=== PATIENT | female | born 1965 | race African-American/Black ===

== ENCOUNTER 2017-11-20 00:58 | Inpatient (IN) | payer MEDICARE, MEDICAID ==
--- NOTE | 2017-11-20 08:44 | CT ---
PRELIMINARY REPORT/[facility]/EMERGENCY AFTER HOURS PROCEDURE: EXAM: CT Chest Without Intravenous Contrast CLINICAL HISTORY: 52 years old, female; Pain; Chest pain; Type not specified TECHNIQUE: Axial computed tomography images of the chest without intravenous contrast. Coronal reformatted images were created and reviewed. COMPARISON: No relevant prior studies available. FINDINGS: Lungs: Airspace disease with air bronchograms centrally in the right lung around the hilar structures extending into the upper lobe with some bronchial crowding anteriorly. Central bronchi are unremarka ble. Patchy airspace disease posteriorly in the left upper lobe and superior segment of the left lowe r lobe. Scattered patchy consolidative and nodular densities in both lungs, somewhat more rounded and defined on the left. Pleural space: Small bilateral pleural effusions, greater on the right with possible mild pleural thi ckening dependently. Heart: Unremarkable. No significant pericardial effusion. Bones/joints: Mottled density within the sternum. Small lytic lesion within the inferior right scapul a. Soft tissues: Right mastectomy. Scattered radiodensities and mild thickening along the right chest wa ll. Apparent skin thickening along the left breast. Vasculature: Unremarkable. Lymph nodes: Several subcentimeter to borderline enlarged mediastinal lymph nodes, measuring up to ar ound 1 cm along the superolateral AP window Upper abdomen: Gallbladder stones and/or sludge. IMPRESSION: Small bilateral pleural effusions with mild apparent pleural thickening. Airspace disease bilaterally suggestive of pneumonia. Scattered consolidative and nodular densities may be related. Underlying ma lignancy is not excluded. Thank you for allowing us to participate in the care of your patient. Dictated and Authenticated by: Surya Patterson MD 11/20/2017 3:55 AM Central Time ([place] & [place]) FINAL REPORT CHEST CT NONCONTRAST: Date: 11/20/17 COMPARISON: Reference made to radiograph of chest from previous day. FINDINGS/IMPRESSION: I agree with the above provided preliminary interpretation from [facility]. There is extensive bilateral pulmonary parenchymal consolidation. The possibility of underlying malig floyd cannot be excluded, and therefore upon resolution of symptoms and completion of treatment regim en, follow-up CT scan is recommended to confirm resolution of imaging findings. POS: [facility]
[2017-11-20] MEDS ORDERED: Sodium Chloride 0.9% 1,000 ML IV SCH (11:25)
[2017-11-20] MEDS ORDERED: Oseltamivir 6 MG/ML ORAL SUSP PO SCH (11:30)
[2017-11-20] MEDS ORDERED: Vancomycin HCl 1 GM in Premix Bag 1 BAG IVPB SCH (11:30)
[2017-11-20] MEDS ORDERED: LEVOFLOXACIN IVPB SCH (11:30)
--- NOTE | 2017-11-20 11:30 | NM ---
RADIONUCLIDE VENTILATION PERFUSION LUNG SCAN: Date: 11/20/17 HISTORY: Lung mass. Chest pain. Dyspnea. COMPARISON: CT chest from earlier on the same date. FINDINGS: Ventilation images show very heterogeneous uptake with defects centrally correlating with the atelect asis and lung masses. Scattered areas of air trapping are more pronounced on the right than the left. Perfusion images show extensive bilateral perfusion defects correlating with the consolidation, amari s, and pleural fluid on the CT chest exam. IMPRESSION: Widespread bilateral triple matched defects. Exam is indeterminate due to the extensive consolidation and lung masses. CT arteriogram chest could be best used, if not contraindicated, to evaluate for pulmonary embolus. POS: [facility]
[2017-11-20] MEDS ORDERED: Benzonatate 100 MG CAP PO PRN (16:28)
[2017-11-20] MEDS ORDERED: Dextrose 50% Abboject 50 ML SYRINGE SLOW IVP PRN (16:28)
[2017-11-20] MEDS ORDERED: Ondansetron HCl/PF 4 MG/2 ML Vial IVP PRN (16:28)
[2017-11-20] MEDS ORDERED: traMADol HCl 50 MG TAB PO PRN (16:28)
[2017-11-20] MEDS ORDERED: Acetaminophen 500 MG TAB PO PRN (16:28)
[2017-11-20] MEDS ORDERED: Ondansetron ODT 4 MG TAB PO PRN (16:28)
[2017-11-20] MEDS ORDERED: HumaLOG 300 UNITS/3 ML VIAL SC PRN ×2 (16:28)
[2017-11-20] MEDS ORDERED: Dextrose 5% in Water 1,000 ML IV PRN (16:28)
[2017-11-20] MEDS: Cefepime 2 GM in Sodium Chloride 0.9% 100 ML IVPB SCH (18:03)
[2017-11-20] MEDS: Cefepime 2 GM, Syringe 2.5 ML in Sterile Water 10 ML SLOW IVP SCH (18:06)
[2017-11-20] MEDS: Sodium Chloride 0.9% 1,000 ML IV SCH ×2 (18:06→23:57)
[2017-11-20] MEDS: Pregabalin 50 MG CAP PO SCH (20:56)
[2017-11-20] MEDS: Famotidine 20 MG TAB PO SCH (20:57)
[2017-11-20] MEDS: Zolpidem Tartrate 5 MG TAB PO PRN (20:58)
[2017-11-20] MEDS: Insulin Detemir 100 UNITS/ML 100 UNITS in Pre-Filled Syringe 1 EACH SC SCH (20:59)
[2017-11-20] MEDS ORDERED: INSULIN GLARGINE HUM REC ANLOG 100 UNIT SQ SCH (21:00)
--- NOTE | 2017-11-20 22:53 | HP ---
DATE OF ADMISSION: 11/20/2017 PRIMARY CARE PROVIDER: Dr. Pamela Romero. CHIEF COMPLAINT: Hypotension. HISTORY OF PRESENT ILLNESS: This is a 52-year-old -[place] Islander female who presented to [facility] in transfer from [facility] after apparently her [place] care provider sent her to the emergency room for evaluation of hypotension. The patient states s he has noticed hypotension over the last 3-4 weeks and has been titrating her medication regimen at [facility]. The patient denied any specific nausea, vomiting or diarrhea. The patient denied any recent tr auma, chest pain, left arm weakness, or unilateral symptoms. The patient does admit to a significant history of right-sided breast cancer diagnosed in the early 1999s, recurring in 2014 after undergoin g a mastectomy with radiation and chemotherapy treatments in the early 1999s. The patient states she is currently receiving an intramuscular chemotherapy injections every 28 days through Oncology offic e in [place], [place]. The patient denied any other specific change to her chronic medication regimen. T he patient does admit to associated dizziness, but no specific syncope or falls. The patient has not ed some palpitations and states her heart rate is always fast. In the emergency room, the patient un derwent extensive evaluation including plain chest radiographs and CT of the chest showing questionab le right hilar mass with associated atelectasis or infiltrate. CT imaging of the chest showed small bilateral pleural effusions with airspace disease suggestive of pneumonia. Consolidative and nodular densities were noted bilaterally. An underlying malignancy could not be excluded per radiology repo rt. The patient also underwent ventilation perfusion study of the lungs showing heterogeneous and wi despread bilateral matched defects. The study was indeterminate given questionable extensive consoli dation versus lung masses. The patient received Rocephin x2 grams in addition to intravenous normal saline and Tamiflu x1 dose. The patient was transferred to the intermediate care unit for further ev aluation. PAST MEDICAL HISTORY: 1. Breast carcinoma, status post right mastectomy with chemo and radiation therapy. 2. History of breast cancer recurrence with current chemotherapy. 3. Tobacco abuse. 4. History of right upper extremity venous thrombosis. 5. Hyperlipidemia. 6. History of gout. 7. Hypertension. PAST SURGICAL HISTORY: Status post right mastectomy, status post bilateral tubal ligation. CURRENT MEDICATIONS: 1. Allopurinol 100 mg 1 tab p.o. daily. 2. Lipitor 80 mg 1 tab p.o. daily. 3. Bupropion SR 150 mg 1 tab p.o. daily. 4. Plavix 75 mg 1 tab p.o. daily. 5. Amaryl 4 mg 1 tab p.o. q.a.m. 6. Glargine insulin 100 units subcutaneously b.i.d. 7. Lisinopril/hydrochlorothiazide 20/25 mg 1 tab p.o. daily. 8. Metformin 1000 mg p.o. b.i.d. 9. Lyrica 50 mg 1 tab p.o. b.i.d. 10. Tramadol 50 mg p.o. t.i.d. p.r.n. 11. Ambien 10 mg 1 tab p.o. at bedtime p.r.n. ALLERGIES: 1. MORPHINE SULFATE. 2. NITROGLYCERIN. 3. PENICILLIN. FAMILY HISTORY: No inheritable diseases per patient report. SOCIAL HISTORY: The patient resides in [place], [place]. She smokes up to a pack of cigarettes daily. Occasional alcohol use. No illicit drug use. Disabled. REVIEW OF SYSTEMS: The following complete review of systems was negative, unless otherwise mentioned in the HPI or below: Constitutional: Weight loss or gain, ability to conduct usual activities. Skin: Rash, itching. Eyes: Double vision, pain. ENT/Mouth: Nose bleeding, neck stiffness, pain, tenderness. Cardiovascular: Palpitations, dyspnea on exertion, orthopnea. Respiratory: Shortness of breath, wheezing, cough, hemoptysis, fever or night sweats. Gastrointestinal: Poor appetite, abdominal pain, heartburn, nausea, vomiting, constipation, or diarr hea. Genitourinary: Urgency, frequency, dysuria, nocturia. Musculoskeletal: Pain, swelling. Neurologic/Psychiatric: Anxiety, depression. Allergy/Immunologic: Skin rash, bleeding tendency. Otherwise negative except as stated per HPI. PHYSICAL EXAMINATION: VITAL SIGNS: Currently, blood pressure 140/71, pulse 121, respiratory rate 20, temperature 96.5 degr ees Fahrenheit, O2 saturation 98% on room air. GENERAL APPEARANCE: This is a 52-year-old -[place]er female, alert and oriented x3, pleasant, in no acute distress. HEENT: Pupils are equal, round, and reactive to light and accommodation. Extraocular muscles are in tact. No scleral icterus, no conjunctival injection. Nares patent. OP is clear. Teeth in fair rep air. NECK: Supple, no cervical adenopathy, no thyromegaly, no carotid bruits, no JVD appreciated. Cervic al spine with full active and passive range of motion. No meningeal signs appreciated. CHEST: Diminished breath sounds in the bases bilaterally with expiratory wheezes bilaterally. Occas ional coarse breath sounds noted. CARDIOVASCULAR: S1, S2 with tachycardia. ABDOMEN: Obese, soft, nontender, nondistended. Bowel sounds are positive in all four quadrants. Th ere is no hepatosplenomegaly, no abdominal bruits, no rebound or guarding appreciated. EXTREMITIES: Warm and dry with fair turgor. No clubbing, cyanosis or asymmetric edema appreciated. Pulses are palpable distally at the dorsalis pedis, posterior tibial, and popliteal arteries bilater ally. Capillary refill less than 2 seconds. NEUROLOGIC: Cranial nerves II-XII are grossly intact. No focal or lateralizing signs appreciated. SKIN: Shows right mastectomy, postsurgical changes without evidence of erythema or discharge. PERTINENT LABORATORY AND X-RAY FINDINGS: Sodium 137, potassium 4.3, chloride 100, CO2 of 25, anion g ap of 16, BUN 45, creatinine 1.75 with estimated GFR of 37, glucose is 234, calcium 9.3, magnesium 2. 0, AST 38, ALT 28, alkaline phosphatase 218. BNP 35, albumin 2.9. CBC showed a white blood cell cou nt 16.1, hemoglobin 9.6, hematocrit 29.5, platelet count 419 with 81% neutrophilia. Portable chest x -ray dated 11/19/2017 showed right hilar density concerning for mass. Increased airspace opacities t hroughout the left lung field concerning for pneumonia/edema. CT of the chest dated 11/20/2017 showe d extensive bilateral pulmonary parenchymal consolidation. Underlying malignancy cannot be excluded. Ventilation perfusion study dated 11/20/2017 showed widespread bilateral triple matched defects, ex am indeterminate due to extensive consolidation and suspected lung masses. EKG dated 11/19/2017 by sparkle sofia interpretation shows sinus tachycardia with heart rates in 115s-120s. Attenuated R waves noted in the precordial leads. Left axis deviation. No acute ST-T wave changes appreciated. ASSESSMENT AND PLAN: 1. Sepsis secondarily to #2. The patient will be admitted to the intermediate care unit. The patie nt initially resuscitated with intravenous normal saline in addition to initiation of antibiotic ther apy with IV Rocephin and Levaquin. Blood and urine cultures pending. We will continue general suppo rtive measures and monitor for clinical response. Please see #2 for full details. 2. Suspected community-acquired pneumonia bilaterally. Questionable lung mass with associated pneum onia. Continue Levaquin 750 mg IV q.24 hours with additional cefepime 2 grams IV q.12 hours. Start DuoNebs q.4 hours p.r.n. We will consult Pulmonology Service for any further recommendations and del ineation of suspected right hilar mass. 3. Acute kidney injury. We will continue intravenous normal saline at 100 mL per hour. Avoid nephr otoxic agents and contrast media. Hold metformin, lisinopril and HCTZ. Hold Amaryl. Repeat creatin ine in the a.m. 4. History of breast cancer with recurrence, status post right mastectomy. Currently receiving chem otherapy monthly. Consider Medical Oncology consultation. Questionable involvement of the right hil ar region. 5. Tobacco abuse. We will offer smoking cessation resources prior to discharge. 6. Sinus tachycardia. Suspect related to #1 and #2. We will continue intravenous fluids as outline d previously. Monitor on the telemetry unit. 7. Chronic normocytic anemia. No current evidence to suggest acute blood loss. Repeat CBC in the a .m. 8. Hypotension. Improved with intravenous fluid resuscitation. We will continue intravenous fluids as outlined previously. We will hold home blood pressure regimen and monitor clinically. 9. Prophylaxis. Sequential compression devices while in bed. Pepcid 20 mg p.o. b.i.d. 10. Code status is FULL. Surrogate medical decision maker is not identified.
[2017-11-21] MEDS: Cefepime 2 GM, Syringe 2.5 ML in Sterile Water 10 ML SLOW IVP SCH ×2 (05:10→17:56)
[2017-11-21 06:17] LABS: ALT (SGPT) 24 U/L (8-55); AST (SGOT) 28 U/L (5-34); Albumin 2.6 g/dL (3.5-5.0); Alkaline Phosphatase 208 U/L (40-150); Anion Gap 11 mmol/L (10-20); BUN (Urea Nitrogen) 26 mg/dL (9.8-20.1); Bilirubin, Total 0.3 mg/dL (0.2-1.2); Calc. Creatinine Clearance 102 mL/min (70-130); Calcium 9.2 mg/dL (7.8-10.44); Carbon Dioxide 23 mmol/L (22-29); Chloride 108 mmol/L (98-107); Estimated GFR-MDRD 73; Globulin 3.7 g/dL (2.4-3.5); Glucose 86 mg/dL (70-105); Potassium 4.2 mmol/L (3.5-5.1); Protein, Total 6.3 g/dL (6.0-8.3); Sodium 138 mmol/L (136-145)
[2017-11-21 06:18] LABS: Eosinophils 2 % (0-10); Hemoglobin 8.9 g/dL (12.0-16.0); Lymphocytes 14 % (21-51); MDiff Complete? YES; Mean Corpuscular Hemoglobin 26.8 pg (27.0-31.0); Mean Corpuscular Volume 89.3 fl (81.0-99.0); Mean Platelet Volume 7.8 fL (7.4-10.4); Monocytes 4 % (0-10); Neutrophil 80 % (42-75); PLT Morphology Comment Appears Adequate; Platelet Count 400 thou/uL (130-400); RBC Distribution Width 13.7 % (11.5-14.5); Red Blood Cell (RBC) Count 3.31 mill/uL (4.20-5.40); White Blood Cell (WBC) Count 11.7 thou/uL (4.8-10.8)
[2017-11-21] MEDS: Cefepime 2 GM in Sodium Chloride 0.9% 100 ML IVPB SCH (08:27)
[2017-11-21] MEDS: Famotidine 20 MG TAB PO SCH (08:30)
[2017-11-21] MEDS: Allopurinol 100 MG TAB PO SCH (08:30)
[2017-11-21] MEDS: Clopidogrel Bisulfate 75 MG TAB PO SCH (08:30)
[2017-11-21] MEDS: Bupropion 150 MG SR TAB PO SCH (08:30)
[2017-11-21] MEDS: Insulin Detemir 100 UNITS/ML 100 UNITS in Pre-Filled Syringe 1 EACH SC SCH ×2 (08:30→21:37)
[2017-11-21] MEDS: Pregabalin 50 MG CAP PO SCH ×2 (08:31→21:35)
[2017-11-21] MEDS ORDERED: Prevnar 13-Val Conj/PF 0.5 ML SYRINGE IM ONE (09:00)
--- NOTE | 2017-11-21 12:44 | CON ---
DATE OF CONSULTATION: 11/21/2017 SERVICE: Pulmonary Medicine. REASON FOR CONSULTATION: CU patient. HISTORY OF PRESENT ILLNESS: Patient is a 52-year-old -[place]ym[place] female with past medical history significant for breast cancer. This was diagnosed a long time ago. She was in remission up until 2014, at which point she was initially on chemotherapeutic drugs injected into her every 28 days. Since being on this medication, she has experienced increasing arthralgias and discomfort. She was in that usual state of health up until over the weekend when she started having increasing cough and difficulty breathing. The coughing spells would actually bring on the difficulty with her breathing. She felt like she could not catch her and presented to the Emergency Department where chest x-ray was widely abnormal. This prompted a CT scan. She notes a little bit of cough with some green sputum production that has been intermittent over the past couple of weeks. She is not coughing up green nasty sputum on a daily basis. She notes gastroesophageal reflux disease. Her cough has been a little bit worse at night, but it goes away during the daytime. She denies having any infectious symptoms of fevers or general malaise. PAST MEDICAL HISTORY: 1. Breast cancer, metastatic. 2. Tobacco abuse. 3. History of right upper extremity venous thromboembolism. 4. Hypertension. 5. Dyslipidemia. 6. Gout. PAST SURGICAL HISTORY: 1. Right mastectomy. 2. Bilateral tubal ligation. ALLERGIES: MORPHINE, NITROGLYCERIN, and PENICILLIN. MEDICATIONS: List of her inpatient medications was reviewed. There were no updates made at this time. FAMILY HISTORY: Noncontributory. SOCIAL HISTORY: She lives in [place], [place]. She continues to smoke a pack on a daily basis and has greater than 13-lnak-udig history of smoking. She is disabled. She rare alcohol and denies illicit drugs. REVIEW OF SYSTEMS: General, head, ears, eyes, nose, throat, cardiovascular, respiratory, GI, , musculoskeletal, neurologic and skin is negative except as mentioned in the HPI. PHYSICAL EXAMINATION: VITAL SIGNS: Afebrile, pulse 113, blood pressure 117/74, respirations 20, saturation 93% on room air. GENERAL: Patient is awake, alert, in no apparent distress. LUNGS: Decent air entry. I do not appreciate any crackling. There are some scattered wheezes throughout and coarse breath sounds. No polyphonic expiratory wheezes appreciated. No rhonchi or crackles are heard. HEART: Normal rate, regular. ABDOMEN: Soft, nontender, and nondistended. Bowel sounds are positive. MUSCULOSKELETAL: No cyanosis or clubbing. There is trace pitting in the bilateral lower extremities. I do not see evidence of significant volume overload; however. GENITOURINARY: No Perez. NEUROLOGIC: Grossly nonfocal. LABORATORY DATA: Comprehensive metabolic profile is essentially unremarkable except for an alkaline phosphatase of 208. AST and ALT fall within normal limits. TSH is normal. Glucose ranges from 88-234. CBC is essentially unremarkable except for minimally elevated white blood cell count of 11.7. Hemoglobin 8.9, platelets 400,000. Blood culture x2 and urine culture are negative. IMAGIN. VQ scan cannot be interpreted. 2. CT of the chest demonstrates bilateral consolidating changes throughout bilateral lung doty. She also has innumerable pulmonary nodules that are in a perilymphatic distribution. Bilateral pleural effusion is also evident. ASSESSMENT: 1. Pulmonary infiltrate characterized by consolidating changes and innumerable perilymphatic nodules. 2. Pleural effusions, small and bilateral. 3. History of breast cancer, currently on chemotherapy. 4. Tobacco abuse. 5. Healthcare-associated pneumonia, possible. DISCUSSION AND PLAN: To be honest with you, I am really not too terribly convinced that we were dealing with an acute infectious process. The patient is not behaving as though she has a severe multifocal pneumonia. The distribution on the CT scan is most consistent with perilymphatic nodularity. The differential for this includes sarcoidosis, lymphangitic spread of carcinoma , and volume overload among a couple of other things that are less likely be the case in this patient. We will check an echocardiogram and BNP. Provided these are normal, we will proceed with bronchoscopy in the morning to get this biopsy from inside of her chest looking for these other 2 processes. Pulmonary Critical Care will continue to follow for the time being. 70 minutes have been devoted to this patient in various activities. I personally reviewed all imaging studies and laboratory data noted within this document. For at least half of this time, I was interacting with the patient at bedside or coordinating the plan with the care team. For the remainder of the time I was immediately available to the patient in the hospital unit. JOSE
[2017-11-21] MEDS ORDERED: traMADol HCl 50 MG TAB PO PRN (13:55)
--- NOTE | 2017-11-21 13:57 | PDOC.PN ---
- Subjective Encounter Start Date: 11/21/17 Encounter Start Time: 13:45 Subjective: f/u for sepsis and suspected PNA. Pt feeling better overall and not dizzy. -: Some coughing but no fever. Receiving Levaquin and Cefepime. - Objective Resuscitation Status: Resuscitation Status FULL:Full Resuscitation MAR Reviewed: Yes Vital Signs & Weight: Vital Signs (12 hours) Temp Pulse Resp BP Pulse Ox 11/21/17 11:11 98 16 11/21/17 11:09 98.5 F 113 H 20 117/74 93 L 11/21/17 07:41 98.2 F 101 H 20 97 11/21/17 07:18 98.2 F 101 H 20 95/53 L 92 L 11/21/17 06:26 98 11/21/17 06:24 108 H 20 11/21/17 04:40 96 Weight Weight 213 lb I&O: 11/20/17 11/21/17 11/22/17 06:59 06:59 06:59 Intake Total 2700 Output Total 300 Balance 2400 Result Diagrams: 11/21/17 05:39 11/21/17 05:39 Additional Labs: Accuchecks 11/21/17 11/21/17 11/20/17 12:26 06:27 20:33 POC Glucose 126 H 88 100 11/20/17 16:44 POC Glucose 231 H Microbiology 11/20/17 09:00 Urine clean catch Urine Culture - Preliminary NO GROWTH AT 24 HOURS 11/20/17 05:08 Venous blood - Left Hand Blood Culture - Preliminary Specimen has been received and culture in progress. No Growth to date. 11/20/17 04:50 Venous blood - Left Arm Blood Culture - Preliminary Specimen has been received and culture in progress. No Growth to date. Laboratory Tests 11/19/17 13:15 WBC 16.1 H Hgb 9.6 L EKG Reviewed by me: Yes (Tele - Sinus in 90's) Phys Exam - Physical Examination Constitutional: NAD HEENT: PERRLA, oral pharynx no lesions Neck: no JVD, supple scattered exp wheezes Cardiovascular: RRR Gastrointestinal: soft, non-tender, no distention, positive bowel sounds Musculoskeletal: no edema, pulses present Neurological: normal sensation, moves all 4 limbs Psychiatric: A&O x 3 Skin: normal turgor, cap refill <2 seconds Dx/Plan (1) Sepsis Code(s): A41.9 - SEPSIS, UNSPECIFIED ORGANISM Status: Acute Comment: Improved with IV abx and fluid resuscitation, initial blood/urine cx negative, continue supportive measures (2) Pneumonia Code(s): J18.9 - PNEUMONIA, UNSPECIFIED ORGANISM Status: Suspected Qualifiers: Laterality: bilateral Comment: Continue Cefepime and Levaquin empirically, Pulmonology following, general pulmonary support, Duonebs (3) SULEMA (acute kidney injury) Code(s): N17.9 - ACUTE KIDNEY FAILURE, UNSPECIFIED Status: Acute Comment: Improved, continue IVF's, avoid nephrotoxic meds and contrast media (4) Breast carcinoma Code(s): C50.919 - MALIGNANT NEOPLASM OF UNSP SITE OF UNSPECIFIED FEMALE BREAST Status: Chronic Comment: Supportive mgmt, will f/u with primary oncologist after d/c (5) Hypotension Status: Acute Comment: Resolved, continue IVF's and monitor BP trend (6) Normocytic anemia Code(s): D64.9 - ANEMIA, UNSPECIFIED Status: Chronic Comment: Stable, continue to monitor H/H trend, no evidence of acute blood loss - Plan continue antibiotics, respiratory therapy, out of bed/ambulate, DVT proph w/SCDs Stable currently -: Continue Cefepime and Levaquin -: Continue Duonebs -: 2D Echo pending -: ? bronchoscopy in am * AM lab: BMP, CBC * Transfer to telemetry
[2017-11-21] MEDS: Zolpidem Tartrate 5 MG TAB PO PRN (21:35)
[2017-11-21] MEDS: Cyclobenzaprine 10 MG TAB PO PRN (21:35)
[2017-11-22] MEDS: Cefepime 2 GM, Syringe 2.5 ML in Sterile Water 10 ML SLOW IVP SCH ×2 (06:00→18:45)
[2017-11-22 06:08] VITALS: BMI 36.4
[2017-11-22 06:13] LABS: Anion Gap 14 mmol/L (10-20); BUN (Urea Nitrogen) 17 mg/dL (9.8-20.1); Calc. Creatinine Clearance 103 mL/min (70-130); Calcium 10.1 mg/dL (7.8-10.44); Carbon Dioxide 22 mmol/L (22-29); Chloride 106 mmol/L (98-107); Estimated GFR-MDRD 74; Glucose 85 mg/dL (70-105); Potassium 4.1 mmol/L (3.5-5.1); Sodium 138 mmol/L (136-145)
[2017-11-22 06:33] LABS: Band 2 % (5-11); Eosinophils 1 % (0-10); Hemoglobin 10.2 g/dL (12.0-16.0); Lymphocytes 7 % (21-51); MDiff Complete? YES; Mean Corpuscular HGB CONC 31.7 g/dL (32.0-36.0); Mean Corpuscular Hemoglobin 27.8 pg (27.0-31.0); Mean Corpuscular Volume 87.7 fl (81.0-99.0); Mean Platelet Volume 7.7 fL (7.4-10.4); Monocytes 4 % (0-10); Neutrophil 86 % (42-75); PLT Morphology Comment Appears Increased; Platelet Count 444 thou/uL (130-400); RBC Distribution Width 13.7 % (11.5-14.5); Red Blood Cell (RBC) Count 3.67 mill/uL (4.20-5.40); White Blood Cell (WBC) Count 10.7 thou/uL (4.8-10.8)
[2017-11-22] MEDS: Allopurinol 100 MG TAB PO SCH (08:38)
[2017-11-22] MEDS: Bupropion 150 MG SR TAB PO SCH (08:38)
[2017-11-22] MEDS: Insulin Detemir 100 UNITS/ML 100 UNITS in Pre-Filled Syringe 1 EACH SC SCH ×2 (08:39→19:28)
[2017-11-22] MEDS: Clopidogrel Bisulfate 75 MG TAB PO SCH (08:39)
[2017-11-22] MEDS: Pregabalin 50 MG CAP PO SCH ×2 (08:39→20:27)
--- NOTE | 2017-11-22 14:06 | PQF ---
DATE: 11-22-17 ATTN: DR. FRANCOISE VILLA Please exercise your independent, professional judgment in responding to the clarification form. Clinical indicators are provided on the bottom of this form for your review Please check appropriate box(s): [ ] Aspiration Pneumonia [ ] Empirically treating Gram Negative Pneumonia [ ] Other diagnosis [ x ] Unable to determine In addition, please specify: Present on Admission (POA): [ ] Yes [ ] No [ x ] Unable to determine For continuity of documentation, please document condition throughout progress notes and discharge summary. Thank You. CLINICAL INDICATORS - SIGNS / SYMPTOMS / LABS ER DOCUMENTATION: SOB H&P: SUSPECTED COMMUNITY -ACQUIRED PNEUMONIA BILATERALLY. CONSULT NOTE DR. BURRIS 11-21-17: SHE WAS IN THAT USUAL STATE OF HEALTH UNTIL OVER THE WEEKEND WHEN SHE STARTED HAVING INCREASING COUGH AND DIFFICULTY BREATHING. THE COUGHING SPELLS WOULD ACTUALLY BRING ON THE DIFFICULTY WITH HER BREATHING. CONSULT NOTE DR. BURRIS 11-21-17: HEALTHCARE ASSOCIATED PNEUMONIA, POSSIBLE CXR 11-20-17: SMALL BILATERAL PLEURAL EFFUSIONS WITH MILD APPARENT PLEURAL THICKENING. AIRSPACE DISEASE SUGGESTIVE OF PNEUMONIA. (11-20-17) CEFEPIME IV, LEVAQUIN RISK FACTORS: ER DOCUMENTATION: HX OF DM 2, HTN, BREAST CA, PREVIOUS SMOKER, H&P: QUESTIONABLE LUNG MASS, CHEMO AND RADIATION TREATMENTS: (11-20-17) CEFEPIME IV, LEVAQUIN, IVF ( 11-20-17) O2 USE PULMONARY CONSULT (11-20-17) MELL SCHMIDT (This form is maintained as a part of the permanent medical record) 2014 [employer]. All Rights Reserved BRITANY [email or web address] Office: [phone] [facility]IATR[facility] CENTERAnabel
[2017-11-22] MEDS ORDERED: Furosemide 20 MG/2 ML VIAL SLOW IVP SCH (17:15)
--- NOTE | 2017-11-22 17:26 | PRG ---
DATE OF SERVICE: 11/22/2017 SERVICE: Pulmonary Medicine. INTERVAL HISTORY: The patient is doing great from a respiratory standpoint. She says she is breathi ng comfortably. I think that brought her in initially, was low blood pressure. She also had a cough . Both of these things are basically improved to baseline and she feels much better. She would pref er to go home. I do think this is reasonable provided that no additional investigation needs to be d one into the heart. PHYSICAL EXAMINATION: VITAL SIGNS: Afebrile, pulse 117, blood pressure 127/74, respirations 20, saturation 92% on room air . GENERAL: The patient is awake and alert. She is in no apparent distress. LUNGS: Decent air entry. I do appreciate minimal crackling in posterior lung doty today. It is m ore predominantly displayed in the anterior lung doty. HEART: Normal rate with regular rhythm. ABDOMEN: Soft, nontender, nondistended. Bowel sounds positive. MUSCULOSKELETAL: No cyanosis or clubbing. She has got 1+ pitting in the bilateral feet. GENITOURINARY: No Perez catheter. NEUROLOGIC: Grossly nonfocal. LABORATORY DATA: WBC 10.7, hemoglobin 10.2, platelets 444,000. Band count is 2% with a neutrophil c ount of 86%. Basic metabolic profile is completely unremarkable. Respiratory virus PCR is completel y negative. Blood culture x2 and urine culture are negative. ASSESSMENT: 1. Pulmonary infiltrate, characterized by consolidating changes, and innumerable perilymphatic nodul es. 2. Pleural effusions, small and bilateral. 3. History of breast cancer, currently on chemotherapy. 4. Tobacco abuse. 5. Healthcare-associated pneumonia, possible. PLAN: If the echocardiogram is normal, the patient can be transitioned home to complete a course of antibiotics. I would like to see her in my clinic in 1-2 weeks in the outpatient setting with a ches t x-ray. If the infiltrate persist, bronchoscopy will be scheduled as an outpatient. She is now hav ing increasing lower extremity edema. As such, provided with a dose of Lasix tonight and tomorrow mo rning. If she happens to be here on Saturday, we will likely proceed with the bronchoscopy as an inpatient. A gain, differential remains wide and includes lymphangitic spread of carcinoma, other interstitial edel g disease, sarcoidosis, and volume overload. If she is here until the weekend, Dr. Cade follow.
--- NOTE | 2017-11-22 17:41 | PDOC.PN ---
- Subjective Encounter Start Date: 11/22/17 Encounter Start Time: 17:30 Subjective: f/u PNA and sepsis with Cefepime and Levaquin. Overall doing much -: better and no fever. SOB markedly improved. - Objective Resuscitation Status: Resuscitation Status FULL:Full Resuscitation Vital Signs & Weight: Vital Signs (12 hours) Temp Pulse Resp BP Pulse Ox 11/22/17 16:00 98.4 F 117 H 20 127/74 92 L 11/22/17 14:56 107 H 16 96 11/22/17 12:00 98.8 F 119 H 20 127/74 95 11/22/17 11:18 93 15 96 11/22/17 08:12 98.7 F 121 H 18 142/87 H 94 L 11/22/17 08:00 98.7 F 93 15 94 L 11/22/17 07:39 93 L 11/22/17 07:33 98.7 F 117 H 16 129/79 88 L 11/22/17 06:38 98 11/22/17 06:36 118 H 16 Weight Admit Weight 213 lb Weight 212 lb 3.2 oz I&O: 11/21/17 11/22/17 11/23/17 06:59 06:59 06:59 Intake Total 2700 1000 Output Total 300 850 Balance 2400 150 Result Diagrams: 11/22/17 05:40 11/22/17 05:40 Additional Labs: Accuchecks 11/22/17 11/22/17 11/22/17 17:05 10:47 05:57 POC Glucose 88 82 85 11/21/17 11/21/17 21:32 10:48 POC Glucose 115 H 52 L* Microbiology 11/20/17 14:50 Nasopharyngeal swab Respiratory Virus Panel (PCR) ([facility]) - Final 11/20/17 09:00 Urine clean catch Urine Culture - Final 11/20/17 09:00 Urine clean catch Urine Culture - Preliminary NO GROWTH AT 24 HOURS 11/20/17 05:08 Venous blood - Left Hand Blood Culture - Preliminary Specimen has been received and culture in progress. No Growth to date. 11/20/17 05:08 Venous blood - Left Hand Blood Culture - Preliminary NO GROWTH AT 48 HOURS 11/20/17 04:50 Venous blood - Left Arm Blood Culture - Preliminary Specimen has been received and culture in progress. No Growth to date. 11/20/17 04:50 Venous blood - Left Arm Blood Culture - Preliminary NO GROWTH AT 48 HOURS Laboratory Tests 11/19/17 13:15 WBC 16.1 H Hgb 9.6 L EKG Reviewed by me: Yes (Tele - sinus tachycardia in low 100's) Phys Exam - Physical Examination Constitutional: NAD HEENT: PERRLA, oral pharynx no lesions Neck: no JVD, supple Respiratory: no wheezing tachycardic Gastrointestinal: soft, non-tender, no distention, positive bowel sounds Musculoskeletal: no edema, pulses present Neurological: normal sensation, moves all 4 limbs Psychiatric: A&O x 3 Skin: normal turgor, cap refill <2 seconds Dx/Plan (1) Sepsis Code(s): A41.9 - SEPSIS, UNSPECIFIED ORGANISM Status: Acute Comment: Improved with IV abx and fluid resuscitation, initial blood/urine cx negative, continue supportive measures (2) Pneumonia Code(s): J18.9 - PNEUMONIA, UNSPECIFIED ORGANISM Status: Suspected Qualifiers: Laterality: bilateral Comment: Suspected gm+ cocci, Continue Cefepime and Levaquin empirically, Pulmonology following, general pulmonary support, Duonebs, de-escalate abx regimen in 24h (3) SULEMA (acute kidney injury) Code(s): N17.9 - ACUTE KIDNEY FAILURE, UNSPECIFIED Status: Acute Comment: Improved, continue IVF's, avoid nephrotoxic meds and contrast media (4) Breast carcinoma Code(s): C50.919 - MALIGNANT NEOPLASM OF UNSP SITE OF UNSPECIFIED FEMALE BREAST Status: Chronic Comment: Supportive mgmt, will f/u with primary oncologist after d/c (5) Hypotension Status: Acute Comment: Resolved, continue IVF's and monitor BP trend (6) Normocytic anemia Code(s): D64.9 - ANEMIA, UNSPECIFIED Status: Chronic Comment: Stable, continue to monitor H/H trend, no evidence of acute blood loss - Plan continue antibiotics, PT/OT, pediatric social worker, respiratory therapy, out of bed/ ambulate, DVT proph w/SCDs Stable overall -: Continue Cefepime and Levaquin another 24h -: Continue pulmonary supportive measures -: Plan for bronchoscopy but likely outpt -: Likely home in 24h-48h * .
[2017-11-22] MEDS: Cyclobenzaprine 10 MG TAB PO PRN (20:29)
[2017-11-22] MEDS: Zolpidem Tartrate 5 MG TAB PO PRN (20:29)
[2017-11-23] MEDS: Cefepime 2 GM, Syringe 2.5 ML in Sterile Water 10 ML SLOW IVP SCH (05:38)
[2017-11-23] MEDS ORDERED: Furosemide 20 MG/2 ML VIAL SLOW IVP SCH (09:00)
[2017-11-23] MEDS: Insulin Detemir 100 UNITS/ML 100 UNITS in Pre-Filled Syringe 1 EACH SC SCH (09:01)
[2017-11-23] MEDS: Bupropion 150 MG SR TAB PO SCH (09:02)
[2017-11-23] MEDS: Pregabalin 50 MG CAP PO SCH (09:02)
[2017-11-23] MEDS: Clopidogrel Bisulfate 75 MG TAB PO SCH (09:02)
[2017-11-23] MEDS: Allopurinol 100 MG TAB PO SCH (09:02)
[2017-11-23 11:42] VITALS: BP 117/64; TEMP 98.5
--- NOTE | 2017-11-23 14:03 | DIS ---
DATE OF ADMISSION: 11/20/2017 DATE OF DISCHARGE: 11/23/2017 DISCHARGE DIAGNOSES: 1. Sepsis syndrome secondarily to community-acquired pneumonia with suspected gram positive cocci. 2. Bilateral pneumonia with suspected gram positive cocci, improved. 3. Acute kidney injury, resolved. 4. Metastatic breast carcinoma with current chemotherapy. 5. Hypotension, resolved. 6. Chronic normocytic anemia, stable. CONSULTATION: Dr. Delgado with Pulmonology Service. PERTINENT LABORATORY DATA AND X-RAY FINDINGS: Creatinine ranged between 0.96-1.75. Estimated GFR ra nged between 37-74, BNP 75, TSH 1.00. CBC showed white blood cell count ranging between 10.7-11.7, h emoglobin ranged between 8.9-10.2. Blood cultures x2 from 11/20/2017 showed no growth at 48 hours. Urine culture dated 11/20/2017 showed less than 10,000 colonies of mixed skin jaylene. Respiratory vir us panel PCR dated 11/20/[address] of the chest dated 11/20/2017 showed extensive bilateral pulmonary parenchymal consolidation. Possibility of underlying malignancy cannot be excluded. A 2D transthoracic echocardiogram dated 11/22/2017 showed ejection fraction of 55%-60%. Diastolic dysfunc tion noted. Mild tricuspid valve regurgitation. Ventilation perfusion study dated 11/20/2017 showed widespread bilateral triple matched defects. Exam is indeterminate due to extensive consolidation a nd lung masses. HOSPITAL COURSE: Patient was admitted to the intermediate care unit after initially presenting with hypotension and shortness of breath. The patient underwent extensive evaluation including multiple i maging modalities showing bilateral lung consolidation concerning for pneumonia in the context of kno wn metastatic breast carcinoma with current chemotherapy. The patient also noted with criteria consi stent with sepsis, placed on aggressive IV fluid hydration and initiated on broad spectrum IV antibio tic coverage including Rocephin and Levaquin. The patient received aggressive pulmonary supportive m easures in conjunction with IV antibiotic therapy throughout the hospital course rapidly clinically i mproving in the first 48 hours. The patient was evaluated by the Pulmonology Service with recommenda tions for continued IV antibiotic coverage in conjunction with general pulmonary supportive measures. The patient underwent 2D transthoracic echocardiogram evaluation showing overall preserved ejection fraction after concern for a possible pulmonary edema. The patient continued to clinically improve and was transitioned to the telemetry unit where patient convalesced without complication. Telemetry monitoring showed sinus tachycardia with heart rates ranging in the mid 90s to low 110s. Overall, jessica sandoval remained clinically stable throughout the hospital course, tolerating regular oral intake, amb ulating without assistance or difficulty and ready for discharge 11/23/2017. DISCHARGE MEDICATIONS: 1. Levaquin 750 mg 1 tab p.o. daily x7 days. 2. Allopurinol 100 mg 1 tab p.o. daily. 3. Lipitor 80 mg 1 tab p.o. daily. 4. Bupropion SR 150 mg 1 tab p.o. daily. 5. Plavix 75 mg 1 tab p.o. daily. 6. Aromasin 25 mg p.o. daily. 7. Amaryl 4 mg 1 tab p.o. q.a.m. 8. Glargine insulin 100 units subcutaneously b.i.d. 9. Lisinopril/hydrochlorothiazide 20/25 mg 1 tab p.o. daily. 10. Metformin 1000 mg p.o. b.i.d. 11. Lyrica 50 mg p.o. b.i.d. 12. Tramadol 50 mg p.o. t.i.d. p.r.n. 13. Ambien 10 mg p.o. at bedtime p.r.n. FOLLOWUP: Patient may follow up with her primary care provider, Dr. Cammie Ernst in [place], [place] within 7 days of discharge. The patient may also follow up with Dr. Adi Delgado within 10 days of disch arge and to call his office for appointment time and date. CONDITION ON DISCHARGE: Stable. ACTIVITY: Ad aaron. DIET: Heart healthy and ADA. CODE STATUS: FULL. DISPOSITION: Home 11/23/2017.
--- NOTE | 2017-12-03 16:57 | PQF ---
GRICELDA DAVALOSFRANCOISE DO [id number] CU- [id number] CLINICAL DOCUMENTATION CLARIFICATION FORM: POST DISCHARGE Addendum to original discharge summary date: ____ Late entry note date: __ DATE: 12/03/17 ATTN: Dr. Pitts Please exercise your independent, professional judgment in responding to the clarification form. Clinical indicators are provided on the bottom of this form for your review Please check appropriate box(s): Conflicting documentation was noted in the Medical Record, please clarify if patient is being treated/monitored for: [ ] Sepsis is documented throughout the chart (diagnosis #1) [ ] Sepsis syndrome is documented in the DC summary. Coding guidelines require us to query for clarification since the two terms are not synonymous (diagnosis #2) [ ] Other diagnosis [ ] Unable to determine In addition, please specify: Present on Admission (POA): [ ] Yes [ ] No [ ] Unable to determine CLINICAL INDICATORS - SIGNS / SYMPTOMS/ LABS Insert documentation from providers that state diagnosis RISK FACTORS Insert risk factors supporting diagnosis TREATMENT Insert treatment supporting diagnosis (This form is maintained as a part of the permanent medical record) 2014 [employer], [employer]. All Rights Reserved DENZEL Terrell, [email or web address] [phone] MTDD
== END 2017-11-23 13:27 | disposition home or self-care (01) | DRG 871 ==
LOC: ERS 00:58 → ERHOLD 02:43 → IMCU/EMU 11:30 → 2SE 11-22 08:04
PROVIDERS: ADMIT Internal Medicine; ATTEND Internal Medicine
DX: A41.9 Sepsis, unspecified organism (principal); J18.9 Pneumonia, unspecified organism; N17.9 Acute kidney failure, unspecified; I07.1 Rheumatic tricuspid insufficiency; C50.919 Malignant neoplasm of unspecified site of unspecified female breast; D64.9 Anemia, unspecified; E78.5 Hyperlipidemia, unspecified; F17.210 Nicotine dependence, cigarettes, uncomplicated; I10 Essential (primary) hypertension
CPT/HCPCS: 36415; 36416; 71250; 78582; 80048; 80053; 83880; 84443; 85007; 85027; 87040; 87086; 87633; 90471; 90670; 93306; 94640; 96361; 96374; A4216; A9540; A9558; G0009; J0692; J0696; J1815; J1940; J1956; J7050; J7620

== ENCOUNTER 2017-12-24 17:15 | Inpatient (IN) | payer MEDICARE, MEDICAID ==
[2017-12-24 18:31] LABS: Troponin I 0.058 ng/mL (< 0.028)
[2017-12-24] MEDS ORDERED: Ondansetron ODT 4 MG TAB ONE (18:31)
[2017-12-24] MEDS ORDERED: Benzonatate 100 MG CAP PO PRN (20:23)
[2017-12-24] MEDS ORDERED: Ondansetron ODT 4 MG TAB PO PRN (20:23)
[2017-12-24] MEDS ORDERED: Dextrose 5% in Water 1,000 ML IV PRN (20:23)
[2017-12-24] MEDS ORDERED: HumaLOG 300 UNITS/3 ML VIAL SC PRN (20:23)
[2017-12-24] MEDS ORDERED: Acetaminophen 325 MG TAB PO PRN (20:23)
--- NOTE | 2017-12-24 20:30 | HP ---
DATE OF ADMISSION: 12/24/2017 TIME OF VISIT: 1830 hours. PRIMARY CARE PHYSICIAN: Dr. Cammie Ernst in [place]. PRIMARY MINER PICK: Adi Delgado MD CHIEF COMPLAINT: Shortness of breath. HISTORY OF PRESENT ILLNESS: Ms. Yo is a 52-year-old -Citizen Of [place] female with history of COPD; diabetes, insulin-dependent; chronic O2 dependence; breast cancer, undergoing therapy currently; and ongoing tobacco abuse, who presents to the emergency department with a 2-week history of increasing symptoms of cough and shortness of breath. She really got lost over the last 24 hours and decided to come to the emergency department for evaluation. She presented to the emergency department in [place] where she was found to have white count of 20,000 and chest x-ray showed patchy bilateral infiltrates. Creatinine was increased from her baseline of 1 to 2.67. Potassium was 6.2. We were subsequently called for admit after transfer here. The patient is breathing okay. She denies any nausea or vomiting, no diarrhea or constipation. Some dysuria, but no hematuria. No fevers, chills or night sweats. Here, she received I believe vancomycin and Zosyn in the emergency department. PAST MEDICAL HISTORY: 1. COPD. 2. Diabetes mellitus type 2. 3. Oxygen dependence. 4. Breast cancer, ongoing treatment. She was diagnosed and underwent right mastectomy, chemo and radiation and then had recurrence and is undergoing chemotherapy with weekly injections now and on oral medication. 5. Ongoing tobacco abuse. 6. Right upper extremity DVT in the past. 7. Hyperlipidemia. 8. Chronic diastolic CHF. 9. Hypertension. PAST SURGICAL HISTORY: Right mastectomy. HOME MEDICATIONS: 1. Allopurinol 100 mg p.o. daily. 2. Lipitor 80 mg p.o. at bedtime. 3. Bupropion XR 150 mg p.o. daily. 4. Plavix 75 mg daily. 5. breast CA medicine 25 mg daily. 6. Amaryl 4 mg p.o. q.a.m. 7. Lantus 100 units subcutaneously b.i.d. 8. Lisinopril/hydrochlorothiazide 20/25 one p.o. daily. 9. Metformin 1000 mg p.o. b.i.d. 10. Lyrica 50 mg p.o. b.i.d. 11. Tramadol 50 mg t.i.d. p.r.n. 12. Ambien 10 mg p.o. at bedtime. ALLERGIES: MORPHINE, NITRO and PENICILLIN. FAMILY HISTORY: Negative for clotting or bleeding disorder, no immune dysfunction. SOCIAL HISTORY: Significant for 1 pack per day for many years. Denies any alcohol or drug use. REVIEW OF SYSTEMS: A 10-point review of systems was performed, negative for all other systems except as stated as per HPI. PHYSICAL EXAMINATION: VITAL SIGNS: Temperature 98.3, pulse 112, blood pressure 96/65, respiratory rate 18, satting 93% on room air. She is satting 95% on 2 liters nasal cannula at present. GENERAL: She is awake. She is alert. She is oriented x3. She is an obese chronically ill appearing female. She looks tired, but in no acute distress. HEENT: Normocephalic, atraumatic. Pupils are equal and reactive bilaterally, mucous membranes are moist. She has no visible lesion, no thrush. NECK: Supple, without lymphadenopathy, JVD or thyromegaly. LUNGS: Have coarse breath sounds bilaterally. She has slightly prolonged expiratory phase. I do not appreciate any wheezes at present. CARDIOVASCULAR: She is tachycardic, but regular. Normal S1, S2. She has a 2-3 /6 systolic ejection murmur best heard at the right upper sternal border. She does not have any diastolic murmurs. ABDOMEN: Obese, it is nontender and nondistended. She has no masses, no organomegaly. No rebound, rigidity or guarding. EXTREMITIES: No cyanosis, no clubbing. A trace bilateral lower extremity edema just above the ankles. She has 1+ dorsalis pedis and posterior tibial pulses. SKIN: Otherwise warm, moist and well perfused. She has had some radiation orellana over her right upper chest. She has no implanted devices. NEUROLOGIC: Cranial nerves II through XII are grossly intact. She has 5/5 strength, she has a normal speech pattern. She has no focal deficits. MUSCULOSKELETAL: Normal to inspection. She has no joint inflammation. No palpable effusions. No evidence of gouty flare. LABORATORY EVALUATION: Sodium 135, potassium 6.2, chloride 99, bicarbonate 20, BUN 27, creatinine 2.67, and glucose of 242 with calcium of 9.6. Her creatinine was 1.47 just a couple weeks ago, was 1.0 her baseline. No liver function. CBC showed a white count of 20.4, 86% granulocytes, 8% lymphocytes, no bands. Hemoglobin is 9.2, hematocrit 29.5, and platelet count 423,000. IMAGING: Chest x-ray showed patchy bilateral infiltrates consistent with infiltrate in the right setting. She has some postop right shoulder replacement rotator cuff repair findings. ASSESSMENT AND PLAN: 1. Healthcare associated pneumonia: The patient's hypoxic above her baseline, she is tachycardic, white blood cell count is 20.4 and a lactic acid of 3.3. At this point, we will place her inpatient on telemetry. We will watch her heart rate. We will start her on cefepime and levofloxacin. I will attempt to get a sputum culture if she produces. 2. Acute kidney injury. Creatinine is 2.67. BUN is not particularly elevated. We will hold her lisinopril/hydrochlorothiazide, we will hold her metformin, and gently hydrate her. She got IV fluids initially in the ER 100 mL per hour and we will admit. 3. Sepsis syndrome. The patient does meet sepsis criteria, severe, present on admission. 4. Diabetes mellitus type 2. She is on huge doses of Lantus, metformin, and Amaryl. We will hold her oral medications now, continue her Lantus and use aggressive sliding scale with q.i.d. before meals and at bedtime Accu-Cheks. We will give her heart healthy with 2000 calorie and constant carbohydrates. 5. History of breast cancer. We will give the name of the medication that she takes injecting tomorrow. 6. Ongoing tobacco abuse, counseling was begun. 7. History of deep venous thrombosis. No evidence of activity now. 8. Hyperlipidemia, on Lipitor, we will hold at present. 9. Gout. No active flares, on allopurinol, we will hold. 10. Hypertension, currently hypotensive likely secondary to renal failure, holding on her medications. We will watch very closely and gently hydrate. We will notify Dr. Ernst and notify Dr. Delgaod. [facility]
[2017-12-24] MEDS: HYDROcodone/Acetaminophen 5/325 mg Tablet PO PRN (21:54)
[2017-12-24] MEDS: Sodium Chloride 0.9% 1,000 ML IV SCH (21:56)
[2017-12-24] MEDS: Famotidine 20 MG TAB PO SCH (21:56)
[2017-12-24] MEDS: Cefepime 1 GM in Syringe 10 ML SLOW IVP SCH (22:13)
[2017-12-24 22:53] VITALS: BMI 35.2
[2017-12-25] MEDS: Insulin Detemir 100 UNITS/ML 100 UNITS in Admixture Fee 1 EACH SC SCH ×3 (00:40→22:00)
[2017-12-25] MEDS ORDERED: Zolpidem Tartrate 5 MG TAB PO SCH (02:00)
[2017-12-25 05:11] LABS: #Eosinphils 0.1 thou/uL (0.0-0.7); #Lymphocytes 1.3 thou/uL (1.20-3.40); #Monocytes 1.4 thou/uL (0.11-0.59); #Neutrophils 11.8 thou/uL (1.40-6.50); %Basophils 0.1 % (0.0-1.0); %Eosinophils 0.6 % (0.0-10.0); %Lymphocytes 8.8 % (21.0-51.0); %Monocytes 9.7 % (0.0-10.0); %Neutrophils 80.7 % (42.0-75.0); Hemoglobin 8.8 g/dL (12.0-16.0); Mean Corpuscular HGB CONC 30.4 g/dL (32.0-36.0); Mean Corpuscular Hemoglobin 26.7 pg (27.0-31.0); Mean Corpuscular Volume 87.9 fl (81.0-99.0); Platelet Count 365 thou/uL (130-400); RBC Distribution Width 15.2 % (11.5-14.5); Red Blood Cell (RBC) Count 3.31 mill/uL (4.20-5.40); White Blood Cell (WBC) Count 14.7 thou/uL (4.8-10.8)
[2017-12-25 05:21] LABS: Hemoglobin A1c 8.1 % (4.0-6.0)
[2017-12-25 05:37] LABS: Anion Gap 16 mmol/L (10-20); BUN (Urea Nitrogen) 30 mg/dL (9.8-20.1); Calc. Creatinine Clearance 43 mL/min (70-130); Calcium 9.1 mg/dL (7.8-10.44); Carbon Dioxide 18 mmol/L (22-29); Chloride 106 mmol/L (98-107); Estimated GFR-MDRD 28; Magnesium 1.7 mg/dL (1.6-2.6); Potassium 4.8 mmol/L (3.5-5.1); Sodium 135 mmol/L (136-145)
[2017-12-25 05:47] LABS: Glucose 58 mg/dL (70-105)
[2017-12-25] MEDS: Sodium Chloride 0.9% 1,000 ML IV SCH ×3 (06:25→12:35)
[2017-12-25] MEDS: Atorvastatin Calcium 40 MG TAB PO SCH (08:21)
[2017-12-25] MEDS: Famotidine 20 MG TAB PO SCH ×2 (08:22→20:25)
[2017-12-25] MEDS: Clopidogrel Bisulfate 75 MG TAB PO SCH (08:22)
[2017-12-25] MEDS ORDERED: Sodium Chloride 0.9% 500 ML IVPB SCH (09:30)
[2017-12-25] MEDS: Cefepime 1 GM in Syringe 10 ML SLOW IVP SCH ×2 (10:12→22:37)
--- NOTE | 2017-12-25 13:17 | CON ---
DATE OF CONSULTATION: 12/25/2017 SERVICE: Pulmonary Medicine. REASON FOR CONSULTATION: Low blood pressure. HISTORY OF PRESENT ILLNESS: Patient is a 52-year-old -[place] female who has advanced COPD and is oxygen dependent at home. She was in her usual state of health until she started coughing about 2 weeks ago. She is bringing up a little bit of sputum on a day by day basis. Nothing really changed when she went to bed last night. On the day of presentation, however, she was so weak that her family had a hard time getting her out of bed. Outside of this, she did not feel too terribly bad. She presented to the Emergency Department and was discovered to have very low blood pressure. Because of some heart failure issues, she was given 1 liter of fluid. This improved her blood pressure a little bit, but she was subsequently tucked into the floor. She is clearing her end-organ damage on the floor. That being said, her blood pressures remained marginal. She got an additional 500 mL bolus of fluid. She is breathing comfortably right now. Her blood pressures temporarily improved, but settled back down again. She was subsequently brought to the ICU because of marginal blood pressures for possible need to initiate pressors. She is getting another liter of IV fluids right now. I find her cool, calm and collected. She is mentating just fine. She is making good urine currently. PAST MEDICAL HISTORY: 1. Type 2 diabetes mellitus. 2. Chronic hypoxic respiratory failure. 3. Chronic obstructive pulmonary disease, possible. 4. Breast cancer. 5. Tobacco abuse, ongoing. 6. History of DVT. 7. Dyslipidemia. 8. Hypertension. PAST SURGICAL HISTORY: Mastectomy. ALLERGIES: MORPHINE, NITRO, PENICILLIN. MEDICATIONS: List of her inpatient medications were reviewed. No specific updates were made at this time, except for initiating a bolus of IV fluids. FAMILY HISTORY: Noncontributory. SOCIAL HISTORY: Negative for alcohol or illicit drug use. She smokes 1 pack per day and continues to do so. She has got a greater than [id number] history of smoking. REVIEW OF SYSTEMS: General, head, ears, eyes, nose, throat, cardiovascular, respiratory, GI, , musculoskeletal, neurologic and skin is negative except as mentioned in the HPI. PHYSICAL EXAMINATION: VITAL SIGNS: Afebrile currently. She has a T-max of 99.9 and apparently in the Emergency Department, she had a temperature of greater than 101. Pulse 125 , blood pressure 78/49, respirations 16 and saturation 93% on 2.5 liters nasal cannula. GENERAL: Patient is awake and alert, in no apparent distress. LUNGS: Decent air entry. Crackles and rhonchi are both present. They clear with cough. I do not appreciate any wheezing, but there is a slightly prolonged expiratory phase. HEART: Normal rate and regular. ABDOMEN: Soft, nontender and nondistended. Bowel sounds are positive. MUSCULOSKELETAL: No cyanosis or clubbing. No pitting in the bilateral lower extremities. NEUROLOGIC: Grossly nonfocal. LABORATORY DATA: WBC 14.7, hemoglobin 8.8 and platelets 365,000. Basic metabolic profile is unremarkable. Her creatinine is 2.25 currently and previously it was lower. Bicarbonate 18. Magnesium 1.7, stable. Troponin is marginally elevated at 0.058. Blood sugars ranged from 58-114. IMAGING DATA: 1. Chest x-ray demonstrates significant soft tissue attenuation. There are bilateral reticular nodular infiltrates in other areas of overt consolidation that are present, particularly in the left mid lung zone and left base. The right perihilar fullness has actually improved a little bit. Otherwise, the changes are roughly stable. 2. CT of the chest demonstrates overt consolidation of the right middle lobe, bilateral pleural effusions. There is also patchy infiltrates throughout the bilateral lungs. Lastly, perilymphatic nodularity is evident. ASSESSMENT: 1. Acute on chronic hypoxic respiratory failure. 2. Pulmonary infiltrates. 3. Pleural effusions, bilateral. 4. History of breast cancer, chemotherapy. 5. Recent healthcare-associated pneumonia. 6. Tobacco abuse. 7. Acute kidney injury, possibly pre-renal azotemia. PLAN: Towards the end we will volume resuscitate the patient. We will get a formal 2-view chest x-ray tomorrow. If it appears as though the infiltrates are persisting, we may consider a CT of the chest with bronchoscopy to rule out the possibility of lymphangitic spread of carcinoma. Pulmonary Critical Care will continue to follow while the patient remains in house. 70 minutes have been devoted to this patient in various activities. I personally reviewed all imaging studies and laboratory data noted within this document. For at least half of this time, I was interacting with the patient at the bedside or coordinating care with the care team. For the remainder of the time I was immediately available to the patient in the hospital unit. JOSE
--- NOTE | 2017-12-25 13:24 | PQF ---
DATE: 12-25-17 ATTN: DR. MINH PATEL Please exercise your independent, professional judgment in responding to the clarification form. Clinical indicators are provided on the bottom of this form for your review Please check appropriate box(es): [ ] Severe sepsis with acute organ dysfunction of: (Examples: acute kidney failure, other) [ ] Sepsis due to: (Pna, etc.) [ ] Other diagnosis [ ] Unable to determine In addition, please specify: Present on Admission (POA): [ ] Yes [ ] No [ ] Unable to determine For continuity of documentation, please document condition throughout progress notes and discharge summary. Thank You. CLINICAL INDICATORS - SIGNS / SYMPTOMS / LABS ER DIAGNOSIS: PNEUMONIA, SEPSIS H&P: SEPSIS SYNDROME. THE PATIENT DOES MEET SEPSIS CRITERIA,SEVERE, PRESENT ON ADMISSION. WBC: 14.7 PULSE: 12-24-17: 112, 112, 109 12-25-17: 109, 125, 125, 126 BP: 12-25-17: 94/51, 80/55, 78.49 RISK FACTORS: ER DIAGNOSIS: PNEUMONIA, SEPSIS H&P: SEPSIS SYNDROME. THE PATIENT DOES MEET SEPSIS CRITERIA,SEVERE, PRESENT ON ADMISSION. TREATMENTS: (MAR) LEVAQUIN, MAXIPIME, IVF (This form is maintained as a part of the permanent medical record) 2014 [employer], [employer]. All Rights Reserved MTDD
--- NOTE | 2017-12-25 13:32 | PDOC.PN ---
- Subjective Encounter Start Date: 12/25/17 Encounter Start Time: 10:00 Pt admitted by me last ngiht for HCVAP, severe sepsis, hypotension, hypoxia, bilateral patchy infiltrates. Give IV fluids totaling 1L by me plus about 800 overnight. Still hypotensive this morning. No f/c, no N/V/d/c. Feels poorly this mornign. Will transfer to [facility]. Case discussed with Dr Delgado face to face 10 point ROS performed and neg for all systems except as per HPI - Objective Resuscitation Status: Resuscitation Status FULL:Full Resuscitation MAR Reviewed: Yes Vital Signs & Weight: Vital Signs (12 hours) Temp Pulse Resp BP Pulse Ox 12/25/17 10:18 126 H 78/49 L 12/25/17 08:00 99.9 F H 125 H 16 93 L 12/25/17 07:56 99.9 F H 125 H 16 80/55 L 93 L 12/25/17 04:00 98.1 F 78 22 H 94/51 L 99 Weight Admit Weight 205 lb 4.8 oz Weight 205 lb 4.8 oz I&O: 12/24/17 12/25/17 12/26/17 06:59 06:59 06:59 Intake Total 240 840 Output Total 200 Balance 40 840 Result Diagrams: 12/25/17 04:46 12/25/17 04:46 Additional Labs: Accuchecks 12/25/17 12/25/17 12/25/17 11:50 07:06 05:19 POC Glucose 114 H 98 65 L 12/24/17 21:23 POC Glucose 264 H Radiology Reviewed by me: Yes EKG Reviewed by me: Yes Phys Exam - Physical Examination Constitutional: NAD HEENT: PERRLA, moist MMs, sclera anicteric, oral pharynx no lesions Neck: no nodes, no JVD, supple, full ROM coarse bilateral raoles, no wheezes or rhonchi. Good air movement tachy, regular. no murmurs Gastrointestinal: soft, non-tender, no distention, positive bowel sounds Musculoskeletal: pulses present, edema present Neurological: non-focal, normal sensation, moves all 4 limbs Lymphatic: no nodes Psychiatric: normal affect, A&O x 3 Skin: no rash, normal turgor, cap refill <2 seconds Dx/Plan (1) HCAP (healthcare-associated pneumonia) Code(s): J18.9 - PNEUMONIA, UNSPECIFIED ORGANISM Status: Acute Comment: bilateral HCAP. Present on admit. Cefepime, leovflox. Pulm consulted. resp status is stable (2) Septic shock Code(s): A41.9 - SEPSIS, UNSPECIFIED ORGANISM; R65.21 - SEVERE SEPSIS WITH SEPTIC SHOCK Status: Acute Comment: transferred ot CCU, give another 1L fluids, if not better, will need levophed to be started and probably a CVC (3) SULEMA (acute kidney injury) Code(s): N17.9 - ACUTE KIDNEY FAILURE, UNSPECIFIED Status: Acute Comment: Improved, continue IVF's, avoid nephrotoxic meds and contrast media (4) Breast carcinoma Code(s): C50.919 - MALIGNANT NEOPLASM OF UNSP SITE OF UNSPECIFIED FEMALE BREAST Status: Chronic Qualifiers: Estrogen receptor status: unspecified Patient sex: female Laterality: right Comment: Supportive mgmt, will f/u with primary oncologist after d/c (5) Normocytic anemia Code(s): D64.9 - ANEMIA, UNSPECIFIED Status: Chronic Comment: Stable, continue to monitor H/H trend, no evidence of acute blood loss (6) Chronic diastolic CHF (congestive heart failure) Code(s): I50.32 - CHRONIC DIASTOLIC (CONGESTIVE) HEART FAILURE Status: Chronic (7) DM2 (diabetes mellitus, type 2) Status: Chronic Qualifiers: Diabetes mellitus complication status: without complication Diabetes mellitus termite inspector insulin use: with fpc use Qualified Code(s): E11.9 - Type 2 diabetes mellitus without complications; Z79.4 - rodent exterminator (current) use of insulin; Z79.4 - FPC (current) use of insulin; Z79.4 - rodent exterminator ( current) use of insulin; Z79.4 - FPC (current) use of insulin (8) Acute hypoxemic respiratory failure Code(s): J96.01 - ACUTE RESPIRATORY FAILURE WITH HYPOXIA Status: Acute - Plan cont current plan of care, continue antibiotics, PT/OT, DVT proph w/lovenox * .
[2017-12-25] MEDS ORDERED: Sodium Chloride 0.9% 1,000 ML IV SCH (13:45)
[2017-12-25] MEDS: Zolpidem Tartrate 5 MG TAB PO SCH (21:40)
[2017-12-26 05:55] LABS: #Basophils 0.1 thou/uL (0.0-0.2); #Monocytes 1.4 thou/uL (0.11-0.59); #Neutrophils 14.4 thou/uL (1.40-6.50); %Basophils 0.4 % (0.0-1.0); %Eosinophils 0.2 % (0.0-10.0); %Lymphocytes 5.9 % (21.0-51.0); %Monocytes 8.4 % (0.0-10.0); %Neutrophils 85.1 % (42.0-75.0); Hemoglobin 8.1 g/dL (12.0-16.0); Mean Corpuscular HGB CONC 30.9 g/dL (32.0-36.0); Mean Corpuscular Hemoglobin 26.9 pg (27.0-31.0); Mean Platelet Volume 8.4 fL (7.4-10.4); Platelet Count 383 thou/uL (130-400); RBC Distribution Width 15.2 % (11.5-14.5); Red Blood Cell (RBC) Count 3.02 mill/uL (4.20-5.40)
[2017-12-26 06:07] LABS: Anion Gap 15 mmol/L (10-20); BUN (Urea Nitrogen) 45 mg/dL (9.8-20.1); Calc. Creatinine Clearance 38 mL/min (70-130); Calcium 8.5 mg/dL (7.8-10.44); Carbon Dioxide 18 mmol/L (22-29); Chloride 109 mmol/L (98-107); Estimated GFR-MDRD 23; Glucose 67 mg/dL (70-105); Magnesium 1.6 mg/dL (1.6-2.6); Potassium 5.3 mmol/L (3.5-5.1); Sodium 137 mmol/L (136-145)
--- NOTE | 2017-12-26 08:08 | RAD ---
AP VIEW CHEST: HISTORY: A 32-year-old with a history of effusion and infiltrate. DATE: 12/26/17. COMPARISON: Comparison is made to previous exam from 12/24/17. FINDINGS: AP view chest demonstrates EKG leads seen over the chest. Bilateral perihilar airspace opacities are seen. This may represent bilateral perihilar pneumonias. No definite evidence of pneumothorax seen . There may be some minimal blunting of the costophrenic angles compatible with tiny bilateral pleur al effusions. IMPRESSION: Bilateral perihilar airspace opacities. POS: [facility]
[2017-12-26] MEDS: Atorvastatin Calcium 40 MG TAB PO SCH (09:30)
[2017-12-26] MEDS: Insulin Detemir 100 UNITS/ML 100 UNITS in Admixture Fee 1 EACH SC SCH ×2 (09:30→20:52)
[2017-12-26] MEDS: Clopidogrel Bisulfate 75 MG TAB PO SCH (09:30)
[2017-12-26] MEDS ORDERED: Dextrose 5 %-0.45 % NaCl 1,000 ML IV SCH (11:00)
--- NOTE | 2017-12-26 11:08 | PDOC.PN ---
- Subjective Encounter Start Date: 12/26/17 Encounter Start Time: 11:07 Subjective: Seen and examined - Objective Resuscitation Status: Resuscitation Status FULL:Full Resuscitation Vital Signs & Weight: Vital Signs (12 hours) Temp Pulse 12/26/17 08:00 98.5 F 12/26/17 06:42 120 H 12/26/17 04:00 99.8 F H 12/26/17 00:52 118 H Weight Admit Weight 205 lb 4.8 oz Weight 213 lb 6.519 oz Most Recent Monitor Data Heart Rate from ECG 118 NIBP 81/52 NIBP BP-Mean 66 Respiration from ECG 25 SpO2 100 I&O: 12/25/17 12/26/17 12/27/17 06:59 06:59 06:59 Intake Total 240 3727 300 Output Total 200 414 60 Balance 40 3313 240 Result Diagrams: 12/26/17 05:23 12/26/17 05:23 Additional Labs: Accuchecks 12/26/17 12/26/17 12/25/17 10:37 08:25 20:17 POC Glucose 66 L 65 L 125 H 12/25/17 12/25/17 16:44 11:50 POC Glucose 116 H 114 H Phys Exam - Physical Examination Constitutional: NAD HEENT: PERRLA, moist MMs, sclera anicteric Neck: no nodes, supple Cardiovascular: RRR, no significant murmur, no rub Gastrointestinal: soft, non-tender, no distention, positive bowel sounds Musculoskeletal: pulses present Dx/Plan (1) Acute hypoxemic respiratory failure Code(s): J96.01 - ACUTE RESPIRATORY FAILURE WITH HYPOXIA Status: Acute (2) HCAP (healthcare-associated pneumonia) Code(s): J18.9 - PNEUMONIA, UNSPECIFIED ORGANISM Status: Acute Comment: bilateral HCAP. Present on admit. Cefepime, leovflox. Pulm consulted. resp status is stable (3) Septic shock Code(s): A41.9 - SEPSIS, UNSPECIFIED ORGANISM; R65.21 - SEVERE SEPSIS WITH SEPTIC SHOCK Status: Acute Comment: transferred ot CCU, give another 1L fluids, if not better, will need levophed to be started and probably a CVC (4) Chronic diastolic CHF (congestive heart failure) Code(s): I50.32 - CHRONIC DIASTOLIC (CONGESTIVE) HEART FAILURE Status: Chronic (5) DM2 (diabetes mellitus, type 2) Status: Chronic Qualifiers: Diabetes mellitus complication status: without complication Diabetes mellitus longterm insulin use: with longterm use Qualified Code(s): E11.9 - Type 2 diabetes mellitus without complications; Z79.4 - joint terminal attack controller (current) use of insulin; Z79.4 - joint terminal attack controller (current) use of insulin; Z79.4 - shelter ( current) use of insulin; Z79.4 - shelter (current) use of insulin (6) SULEMA (acute kidney injury) Code(s): N17.9 - ACUTE KIDNEY FAILURE, UNSPECIFIED Status: Acute Comment: Improved, continue IVF's, avoid nephrotoxic meds and contrast media (7) Hypotension Status: Acute Comment: Resolved, continue IVF's and monitor BP trend (8) Sepsis Code(s): A41.9 - SEPSIS, UNSPECIFIED ORGANISM Status: Acute Comment: Improved with IV abx and fluid resuscitation, initial blood/urine cx negative, continue supportive measures (9) Hyperkalemia Code(s): E87.5 - HYPERKALEMIA Status: Acute - Plan cont current plan of care, plan discussed w/ family, continue antibiotics, PT/OT , executive secretary social welfare, respiratory therapy, DVT proph w/heparin Renal consult -: Appreciate criticare input * .
[2017-12-26] MEDS: Dextrose 50% Abboject 50 ML SYRINGE SLOW IVP PRN (14:47)
[2017-12-26] MEDS: Dextrose 10% in Water 1,000 ML IV SCH (15:26)
[2017-12-26 15:57] LABS: Bilirubin Negative (Negative); Blood, Urine Large (Negative); Clarity CLEAR (Clear); Glucose, Urine (Dipstick) Negative (Negative); Leukocyte Small (Negative); Nitrite Negative (Negative); Protein, Urine (Dipstick) 100 mg/dL (Neg-Trace); Urobilinogen 0.2 mg/dL (0.2-1.0); pH, Urine 6.5 (5.0-9.0)
[2017-12-26 15:59] LABS: Bacteria/HPF None Seen HPF (None Seen); Hyaline Casts/LPF 4-6 HYALINE CAST LPF (0-3 Hyaline); Pathc Cast-AUWi Flag 1.08 (0-2.49); RBC/HPF 21-50 HPF (0-3); Squamous Epithelial 0-3 HPF (0-3); WBC/HPF 21-50 HPF (0-3)
[2017-12-26] MEDS: Cefepime 1 GM in Syringe 10 ML SLOW IVP SCH ×2 (16:05→22:57)
[2017-12-26 16:18] LABS: Creatinine, Urine 179.38 mg/dL (47-110); Sodium, Urine Less than 20 mmol/L (Not Available)
[2017-12-26 16:33] LABS: Actual Bicarbonate (HCO3a) 22.1 mEq/L (22-26); CO2 Tension 46.2 mmHg (35.0-45.0)
[2017-12-26 16:34] LABS: Calcium, Ionized 1.2 mmol/L (1.12-1.30); Hematocrit-ABG 23.8 % (36.0-47.0); Hemoglobin (Hb) 6.7 g/dL (12.0-16.0); Puncture Site LBA
[2017-12-26] MEDS: Albumin 25% 25 GM/100 ML BOT IVPB SCH (18:40)
[2017-12-26] MEDS: Famotidine 20 MG TAB PO SCH (20:52)
--- NOTE | 2017-12-26 22:22 | CON ---
DATE OF CONSULTATION: 12/20/2017 HISTORY OF PRESENT ILLNESS: Ms. Yo is a 52-year-old black female, who was admitted with a chief c omplaint of shortness of breath. She was evaluated by Pulmonary and chest x-ray showed patchy bilate ral infiltrates. Of interest, the white count was also elevated at 20,000. Initially, potassium was noted at 6.2. She is currently being treated for a presumptive pneumonia. The patient has received initially vancomycin and Zosyn. REVIEW OF SYSTEMS: Not obtainable since the patient is sleepy. MEDICATIONS: [place] 5/325 q.4 hours p.r.n.; Lipitor 80 mg at bedtime; cefepime 1 gram IV daily; Plavi x 75 mg daily; D10 water at 75 mL per hour; insulin detemir, currently on hold; HumaLOG sliding scale ; Levaquin 250 mg IV daily; Zofran 4 mg IV q.6 hours p.r.n. PAST MEDICAL HISTORY: 1. Recent history of breast cancer and currently the patient has been on chemotherapy. 2. Status post DVT. 3. Hyperlipidemia. 4. Type 2 diabetes mellitus. 5. COPD. PAST SURGICAL HISTORY: Includes breast biopsy, status post right mastectomy. SOCIAL HISTORY: The patient lives with her sister. She has 1 child. 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 Smoked for half a pack a day for 20 years. Alcohol rarely. No alcohol. No IV drug abuse. No blood transf usion. Sedentary lifestyle. ALLERGIES: MORPHINE, NITROGLYCERIN, PENICILLIN. TRAUMA: None. IMMUNIZATIONS: Up-to-date. HOSPITALIZATIONS: Please see past medical history. FAMILY HISTORY: No family history of ESRD. PHYSICAL EXAMINATION: VITAL SIGNS: Blood pressure is noted at 94/62, heart rate 109, respiratory rate 19, pulse ox 94%. GENERAL: Awake, supine, comfortable, not in overt distress. SKIN: Adequate turgor. HEENT: The patient has slightly pale conjunctivae, anicteric sclerae. NECK: No neck mass, no carotid bruits, no JVD. CHEST: No deformities. LUNGS: Clear. Decreased breath sounds. HEART: Normal sinus rhythm. No murmur, no gallops, no rubs. ABDOMEN: Globular, soft, nontender. No masses. EXTREMITIES: Trace edema. No deformities. NEUROLOGIC: Awake, can follow simple commands. No tremors or asterixis. IMAGIN12/26/2017 chest x-ray shows bilateral perihilar airspace opacities. LABORATORY DATA: 12/26/2017, white count 17, hemoglobin 8.1. Sodium 137, potassium 5.3, chloride 10 9, carbon dioxide 18, BUN 45, creatinine 2.63, calcium 8.5, magnesium 1.6. Further review of her ser um creatinine shows, on 12/25/2017 creatinine was 2.25, creatinine of 12/24/2017 was 2.67, creatinine of 11/28/2017 was 1.47, creatinine of 11/22/2017 was 0.96. Urinalysis, no pigmented granular cast, specific gravity was 1.020, rbc's 21-50, wbc's 21-50. Urine sodium 20, urine creatinine 179, fraction excretion of sodium is less than 1%. ASSESSMENT AND PLAN: 1. Acute kidney injury. Consider hemodynamically mediated renal dysfunction. Continue volume reple tion with this patient as needed. I will start the patient on salt-poor albumin 25 grams IV q.6 hour s. If needed, we can start this patient back on D5 normal saline at 125 mL per hour. Currently on D 10 due to the severe hypoglycemic episodes. 2. Sepsis syndrome, on empiric IV antibiotics. Continue supportive care. There is no indication fo r any dialytic intervention with this patient. Repeat base met and CBC in a.m.
[2017-12-26] MEDS: Zolpidem Tartrate 5 MG TAB PO SCH (23:00)
[2017-12-27] MEDS: Albumin 25% 25 GM/100 ML BOT IVPB SCH ×4 (00:18→18:03)
[2017-12-27] MEDS: Zolpidem Tartrate 5 MG TAB PO SCH ×2 (00:28→21:12)
[2017-12-27] MEDS: Dextrose 10% in Water 1,000 ML IV SCH ×3 (01:54→12:25)
[2017-12-27] MEDS: Dextrose 50% Abboject 50 ML SYRINGE SLOW IVP PRN (01:54)
[2017-12-27] MEDS ORDERED: Dextrose 50% Abboject 50 ML SYRINGE SLOW IVP PRN (05:39)
[2017-12-27] MEDS: Insulin Detemir 100 UNITS/ML 100 UNITS in Admixture Fee 1 EACH SC SCH (08:10)
--- NOTE | 2017-12-27 08:54 | PDOC.PN ---
- Subjective Encounter Start Date: 12/27/17 Encounter Start Time: 08:51 Subjective: Seen and examined seems in more respiratory distress - Objective Resuscitation Status: Resuscitation Status FULL:Full Resuscitation Vital Signs & Weight: Vital Signs (12 hours) Temp Pulse Resp Pulse Ox 12/27/17 08:00 97.7 F 111 H 29 H 97 12/27/17 00:00 97.6 F Weight Admit Weight 205 lb 4.8 oz Weight 213 lb 6.519 oz Most Recent Monitor Data Heart Rate from ECG 111 NIBP 107/64 NIBP BP-Mean 76 Respiration from ECG 26 SpO2 96 I&O: 12/26/17 12/27/17 12/28/17 06:59 06:59 06:59 Intake Total 3727 2680 Output Total 414 789 100 Balance 3313 1891 -100 Result Diagrams: 12/26/17 05:23 12/27/17 09:06 Additional Labs: Accuchecks 12/27/17 12/27/17 12/27/17 08:06 06:30 05:41 POC Glucose 89 95 110 12/27/17 12/27/17 12/27/17 04:39 03:46 02:30 POC Glucose 95 109 155 H 12/27/17 12/27/17 12/26/17 01:36 00:26 23:33 POC Glucose 67 L 62 L 64 L 12/26/17 12/26/17 12/26/17 22:56 21:42 20:42 POC Glucose 78 96 66 L 12/26/17 12/26/17 12/26/17 19:43 18:43 17:38 POC Glucose 71 50 L* 56 L* 12/26/17 12/26/17 12/26/17 16:12 15:17 14:43 POC Glucose 77 111 H Less than 35 L* 12/26/17 10:37 POC Glucose 66 L Phys Exam - Physical Examination Constitutional: NAD HEENT: PERRLA, moist MMs, sclera anicteric, TM's clear, oral pharynx no lesions Neck: no nodes, no JVD, supple, full ROM Respiratory: no wheezing, no rales, no rhonchi, clear to auscultation bilateral Cardiovascular: RRR, no significant murmur, no rub Gastrointestinal: soft, non-tender, no distention, positive bowel sounds Musculoskeletal: pulses present Dx/Plan (1) Acute hypoxemic respiratory failure Code(s): J96.01 - ACUTE RESPIRATORY FAILURE WITH HYPOXIA Status: Acute (2) HCAP (healthcare-associated pneumonia) Code(s): J18.9 - PNEUMONIA, UNSPECIFIED ORGANISM Status: Acute Comment: bilateral HCAP. Present on admit. Cefepime, leovflox. Pulm consulted. resp status is stable (3) Septic shock Code(s): A41.9 - SEPSIS, UNSPECIFIED ORGANISM; R65.21 - SEVERE SEPSIS WITH SEPTIC SHOCK Status: Acute Comment: transferred ot CCU, give another 1L fluids, if not better, will need levophed to be started and probably a CVC (4) Chronic diastolic CHF (congestive heart failure) Code(s): I50.32 - CHRONIC DIASTOLIC (CONGESTIVE) HEART FAILURE Status: Chronic (5) DM2 (diabetes mellitus, type 2) Status: Chronic Qualifiers: Diabetes mellitus complication status: without complication Diabetes mellitus retirement insulin use: with transformation specialist use Qualified Code(s): E11.9 - Type 2 diabetes mellitus without complications; Z79.4 - penitentiary (current) use of insulin; Z79.4 - penitentiary (current) use of insulin; Z79.4 - supervisor volunteer services ( current) use of insulin; Z79.4 - penitentiary (current) use of insulin (6) SULEMA (acute kidney injury) Code(s): N17.9 - ACUTE KIDNEY FAILURE, UNSPECIFIED Status: Acute Comment: Improved, continue IVF's, avoid nephrotoxic meds and contrast media (7) Hypotension Status: Acute Comment: Resolved, continue IVF's and monitor BP trend (8) Sepsis Code(s): A41.9 - SEPSIS, UNSPECIFIED ORGANISM Status: Acute Comment: Improved with IV abx and fluid resuscitation, initial blood/urine cx negative, continue supportive measures (9) Hyperkalemia Code(s): E87.5 - HYPERKALEMIA Status: Acute (10) Metabolic acidosis Code(s): E87.2 - ACIDOSIS Status: Acute - Plan cont current plan of care, plan discussed w/ family, continue antibiotics, PT/OT , manager social services, respiratory therapy Appreciate Renal input and Pulmonary input -: Get labs -chemistry stat -: Prn Diuresis will give iv lasix 60mg x1 today * .
--- NOTE | 2017-12-27 09:19 | PRG ---
DATE OF SERVICE: 12/26/2017 SERVICE: Pulmonary Medicine. INTERVAL HISTORY: The patient is doing poorly from a respiratory standpoint. In the morning, she to lerated a BiPAP break. Later towards the afternoon, she started having increasing work of breathing and shortness of breath once again. She began a little bit more obtunded. Blood sugar was obtained and she was running in the 30s. She had a low blood sugar of 27. She was placed back on BiPAP, cayden use of some altered mentation and a little bit of acidosis. Now, she started to perk up towards the evening once her blood sugars are under better control. PHYSICAL EXAMINATION: VITAL SIGNS: Afebrile, pulse 109, blood pressure 86/55, respirations 25, saturation 100% on 27% FiO2 . GENERAL: The patient is awake. She is a little somnolent, but is following commands appropriately. She has got minimal respiratory distress. HEENT: Normocephalic, atraumatic. Sclerae are white, conjunctivae pink. Oral and nasal mucosa is m oist without lesions. LUNGS: Decent air entry. There is a prolonged expiratory phase with rhonchi and wheezing both prese nt. HEART: Tachycardic. Regular. ABDOMEN: Soft, nontender, nondistended. Bowel sounds are positive. MUSCULOSKELETAL: No cyanosis or clubbing. No pitting in the bilateral lower extremities. NEUROLOGIC: Grossly nonfocal. LABORATORY DATA: WBC 17.0, hemoglobin 8.1, platelets 383,000. PH 7.30, pCO2 46, pO2 79. Blood suga r was 35 previously, but has now trended into the normal range. Creatinine 2.63 and up trending. BU N 45. Basic metabolic profile, magnesium is otherwise unremarkable. IMAGING: Chest x-ray demonstrates bilateral perihilar airspace opacifications are essentially unchan ged. ASSESSMENT: 1. Acute on chronic hypoxic respiratory failure. 2. Pulmonary infiltrates. 3. Pleural effusions, bilateral. 4. History of breast cancer, on recent chemotherapy. 5. Healthcare-associated pneumonia. 6. Tobacco abuse. 7. Acute kidney injury. PLAN: Because the patient is becoming a little less stable, I do not think that a bronchoscopy in is current setting is indicated. Once her functional status improves a little bit and she becomes mo re stable, we will likely repeat a CT scan to undergo bronchoscopy. If she does not get better, anti fungal coverage will be added. Pulmonary and Critical Care will continue to follow as she remains in this location.
[2017-12-27] MEDS: Micafungin 100 MG in Sodium Chloride 0.9% 100 ML IVPB SCH (09:21)
[2017-12-27] MEDS ORDERED: Furosemide 40 MG/4 ML VIAL SLOW IVP SCH (09:30)
[2017-12-27 09:36] LABS: Actual Bicarbonate (HCO3a) 20.4 mEq/L (22-26); Base Excess (BEa) -5.7 mEq/L (0 (+/-) 2.5); CO2 Tension 43.2 mmHg (35.0-45.0); Calcium, Ionized 1.2 mmol/L (1.12-1.30); Hematocrit-ABG 25.6 % (36.0-47.0); Hemoglobin (Hb) 7.4 g/dL (12.0-16.0); O2 Tension (PaO2) 72.8 mmHg (80.0-100.0); Puncture Site LRA; pH, Arterial 7.29 (7.35-7.45)
[2017-12-27 09:44] LABS: Albumin 3.5 g/dL (3.5-5.0); Anion Gap 13 mmol/L (10-20); BUN (Urea Nitrogen) 44 mg/dL (9.8-20.1); BUN/Creatinine Ratio 22.22; Calc. Creatinine Clearance 50 mL/min (70-130); Calcium 8.8 mg/dL (7.8-10.44); Carbon Dioxide 19 mmol/L (22-29); Chloride 105 mmol/L (98-107); Estimated GFR-MDRD 32; Glucose 77 mg/dL (70-105); Phosphorus 4.5 mg/dL (2.3-4.7); Potassium 4.1 mmol/L (3.5-5.1); Sodium 133 mmol/L (136-145)
--- NOTE | 2017-12-27 16:16 | PRG ---
DATE OF SERVICE: 12/27/2017 SUBJECTIVE: Ms. Yo is a 52-year-old black female seen by Renal Service for acute kidney injury. She had a hemodynamically mediated renal dysfunction. She was also seen by Pulmonology due to respir atory distress. She is currently on a BiPAP. No new complaints today. She is off her BiPAP at the present time. OBJECTIVE: VITAL SIGNS: Blood pressure is 156/77, heart rate 116, respiratory rate 19, pulse ox 97%. GENERAL: Noted to be awake, supine, comfortable, not in distress. SKIN: Adequate turgor. HEENT: Slightly pale conjunctivae, anicteric sclerae. NECK: No neck mass, no carotid bruits, no JVD. CHEST: No deformities. LUNGS: Decreased breath sounds. HEART: Normal sinus rhythm. No murmur, no gallops, no rubs. ABDOMEN: Globular, soft, nontender, no masses. EXTREMITIES: No edema, no deformities. MEDICATIONS: Of 12/27/2017 reviewed. LABORATORY DATA: Of 12/27/2017 showed the following: Sodium 133, potassium 4.1, chloride 105, carbo n dioxide 19, BUN 44, creatinine 1.98, GFR 32 mL per minute, glucose 77, phosphorus 4.5, calcium 8.8, albumin 3.5. ASSESSMENT AND PLAN: 1. Acute kidney injury - hemodynamically mediated renal dysfunction. Continue supportive care. I a gree and consider continuing salt-poor albumin at 25 grams IV q.6 h. 2. Hypoglycemia, currently on D10 water. Encourage increased p.o. intake with this patient. There is no indication for any dialytic intervention with this patient. Continue supportive care. 3. Acute respiratory distress, much improved on p.r.n. BiPAP.
[2017-12-27] MEDS: Atorvastatin Calcium 40 MG TAB PO SCH (16:26)
[2017-12-27] MEDS: Clopidogrel Bisulfate 75 MG TAB PO SCH (16:26)
--- NOTE | 2017-12-27 20:59 | PRG ---
DATE OF SERVICE: 12/27/2017 SERVICE: Pulmonary Medicine. INTERVAL HISTORY: The patient is doing poorly from a respiratory standpoint. This morning, she was put on a BiPAP break and could not tolerate more than about 15 minutes. This afternoon, she is doing a little bit better on dose of Lasix today. She put out significant urine with that. With this, she is breathing a little bit more comfortably. She denies any current fevers or chills. She is having a very lucid moment. Her daughter is available at bedside. PHYSICAL EXAMINATION: VITAL SIGNS: Afebrile, pulse 122, blood pressure 140/92, respirations 28, saturation 96% on 3 liters nasal cannula. GENERAL: Patient is awake and alert. She is in mild respiratory distress. HEENT: Normocephalic, atraumatic. Sclerae are white. Conjunctivae pink. Oral mucosa is moist without lesions. LUNGS: Decent air entry. There are crackles and rhonchi present. Slightly prolonged expiratory phase. Polyphonic wheezing is also evident. HEART: Tachycardic. Regular. ABDOMEN: Soft, nontender, nondistended. Bowel sounds are positive. MUSCULOSKELETAL: No cyanosis or clubbing. There is no pitting in the bilateral lower extremities. NEUROLOGIC: Grossly nonfocal. LABORATORY DATA: Creatinine 1.98 and downtrending nicely. BUN 44, bicarbonate 19. Basic metabolic profile, phosphorus is unremarkable otherwise. Microbiology is negative. ASSESSMENT: 1. Acute on chronic hypoxic respiratory failure. 2. Pulmonary infiltrates, status post antibiotic course x2. 3. Pleural effusions, bilateral. 4. History of breast cancer, on recent chemotherapy. 5. Healthcare-associated pneumonia, being treated again. 6. Tobacco abuse. 7. Acute kidney injury. 8. Hypoglycemia. PLAN: We are empirically going to treat fungal pneumonia at this point. She has had multiple rounds of conventional antibiotics directed at healthcare associated organisms and the infiltrates have not resolved. I would like to do a bronchoscopy on her, but at this point, her oxygen requirements and debility would certainly prevent me from doing it with conscious sedation. Additionally , I do not think it would be successful in extubating her after the procedure at this time. If she ends up getting intubated, a CT of the chest to direct bronchoscopy may help us to get enough information. There is a possibility as we are dealing with lymphangitic spread of carcinoma. Ultimately, the prognosis is extraordinarily poor. We will continue a daily dose of Lasix to try to keep her event to little negative over the next 24-48 hours. I talked to the patient about what she wanted at the end of her life. She has indicated to me that if she developed increasing respiratory failure, she would like to be intubated. This is in hopes that we can correct the problem over the course of 3 or 4 days. If it looks like she is moving in the right direction, she wants supportive care to try an attempt to return to her previous state of health. If on the other hand, she continues to get worse, she would like to transition over to comfort care only and would not want a tracheostomy under any circumstances. We will abide by the patient's wishes if it comes to it and she requires an intubation. JOSE
[2017-12-27] MEDS: Famotidine 20 MG TAB PO SCH (21:11)
[2017-12-27] MEDS: Cefepime 1 GM in Syringe 10 ML SLOW IVP SCH (21:12)
[2017-12-28] MEDS: Furosemide 40 MG/4 ML VIAL SLOW IVP SCH (05:58)
[2017-12-28 06:19] LABS: #Basophils 0.3 thou/uL (0.0-0.2); #Eosinphils 0.1 thou/uL (0.0-0.7); #Lymphocytes 0.8 thou/uL (1.20-3.40); #Monocytes 0.9 thou/uL (0.11-0.59); #Neutrophils 10.2 thou/uL (1.40-6.50); %Basophils 2.1 % (0.0-1.0); %Eosinophils 0.6 % (0.0-10.0); %Lymphocytes 6.1 % (21.0-51.0); %Monocytes 7.2 % (0.0-10.0); Hemoglobin 8.2 g/dL (12.0-16.0); Mean Corpuscular HGB CONC 31.4 g/dL (32.0-36.0); Mean Corpuscular Hemoglobin 26.9 pg (27.0-31.0); Mean Corpuscular Volume 85.6 fl (81.0-99.0); Mean Platelet Volume 8.2 fL (7.4-10.4); Platelet Count 368 thou/uL (130-400); RBC Distribution Width 15.2 % (11.5-14.5); Red Blood Cell (RBC) Count 3.04 mill/uL (4.20-5.40); White Blood Cell (WBC) Count 12.2 thou/uL (4.8-10.8)
[2017-12-28 06:40] LABS: Anion Gap 13 mmol/L (10-20); BUN (Urea Nitrogen) 34 mg/dL (9.8-20.1); Calc. Creatinine Clearance 66 mL/min (70-130); Calcium 9.8 mg/dL (7.8-10.44); Carbon Dioxide 24 mmol/L (22-29); Chloride 104 mmol/L (98-107); Estimated GFR-MDRD 44; Glucose 66 mg/dL (70-105); Magnesium 1.6 mg/dL (1.6-2.6); Phosphorus 3.7 mg/dL (2.3-4.7); Potassium 3.9 mmol/L (3.5-5.1); Sodium 137 mmol/L (136-145)
[2017-12-28] MEDS ORDERED: Magnesium Sulfate 4 GM in Sodium Chloride 0.9% 250 ML 250 ML IVPB SCH (08:15)
[2017-12-28] MEDS: Micafungin 100 MG in Sodium Chloride 0.9% 100 ML IVPB SCH (09:07)
[2017-12-28] MEDS: Atorvastatin Calcium 40 MG TAB PO SCH ×2 (09:09→09:10)
[2017-12-28] MEDS: Clopidogrel Bisulfate 75 MG TAB PO SCH (09:09)
--- NOTE | 2017-12-28 10:45 | PRG ---
DATE OF SERVICE: 12/28/2017 SUBJECTIVE: Ms. Yo is a 52-year-old black female, who was initially admitted with a chief complai nt of shortness of breath. She was evaluated by Pulmonary. At the same time, she was also noted to COPD exacerbation. We were consulted for acute kidney injury. Examination and review of her labs yadav ggests that she had a hemodynamically mediated renal dysfunction. She received empiric volume replet ion with significant improvement of her renal dysfunction. Most recent creatinine now is noted at 1. 5. Please note her initial creatinine was noted at greater than 2 mg percent. No new complaints tod ay. No acute events. OBJECTIVE: VITAL SIGNS: Blood pressure is 137/83, heart rate is 114, respiratory rate 24, pulse ox 99%. GENERAL: Awake, sitting comfortable, not in distress. SKIN: Adequate turgor. HEENT: Pinkish conjunctivae. Anicteric sclerae. NECK: No neck mass, no carotid bruits, no JVD. CHEST: No deformities. LUNGS: Decreased breath sounds. HEART: Normal sinus rhythm. No murmur, no gallops, no rubs. ABDOMEN: Globular, soft, nontender. EXTREMITIES: No edema or deformities. MEDICATIONS: Medications of 12/28/2017 was reviewed. LABORATORY DATA: On 12/28/2017 - White count 12.2, hemoglobin 8.2. On 12/27/2017 - Sodium 133, potassium 4.1, chloride 105, carbon dioxide 19, BUN 44, creatinine 1.98. On 12/28/2017 - BUN 34, creatinine 1.5. ASSESSMENT AND PLAN: 1. Shortness of breath, multifactorial etiology on antibiotics and has been started on diuretics. 2. Acute kidney injury - Superimposed hemodynamically mediated renal dysfunction. Creatinine is not ed at 1.5, which is her best values so far. GFR is 44 mL per minute. Continue current management. Patient has been started on diuretics. We will monitor renal function. No indication for any dialyt ic intervention. We will be rechecking another basic metabolic panel and CBC in a.m.
[2017-12-28] MEDS: Dextrose 10% in Water 1,000 ML IV SCH (14:00)
--- NOTE | 2017-12-28 18:04 | PRG ---
DATE OF SERVICE: 12/28/2017 SUBJECTIVE: Ms. Yo apparently is better than she was yesterday. She is in no distress. She had no wheezes on chest exam. OBJECTIVE: VITAL SIGNS: Remarkable for a blood pressure of 127/86, heart rate of 114, respiratory rate is 21 an d oximetry is 92. HEART: Regular rhythm. ABDOMEN: Soft. LABORATORY AND IMAGING DATA: White count 12.2, hemoglobin 8.2 and platelets 368. Sodium 137, potass ium 3.9, chloride 104, bicarbonate 24, BUN 34 and creatinine 1.5. IMPRESSION: 1. Acute on chronic hypoxic respiratory failure, slowly improving. 2. Acute on chronic kidney disease, slightly better. 3. History of breast cancer. 4. History of pneumonia, currently on antimicrobial therapy. 5. Tobacco use. 6. Type 2 diabetes. 7. Bilateral pulmonary infiltrates most likely a mixture of pulmonary edema in radiographic effects of an infectious process. We will continue to follow with the other physicians caring for. At this point in time, she appears to be reasonably stable.
--- NOTE | 2017-12-28 20:32 | PDOC.PN ---
- Subjective Encounter Start Date: 12/28/17 Encounter Start Time: 20:30 Subjective: seen and examined gradually feeling better - Objective Resuscitation Status: Resuscitation Status FULL:Full Resuscitation Vital Signs & Weight: Weight Admit Weight 205 lb 4.8 oz Weight 213 lb 6.519 oz Most Recent Monitor Data Heart Rate from ECG 117 NIBP 117/98 NIBP BP-Mean 103 Respiration from ECG 18 SpO2 99 I&O: 12/27/17 12/28/17 12/29/17 06:59 06:59 06:59 Intake Total 2680 2093 825 Output Total 783 7290 4450 Balance 3441 -3318 -3235 Result Diagrams: 12/28/17 06:00 12/28/17 06:00 Additional Labs: Accuchecks 12/28/17 12/28/17 12/28/17 17:12 13:13 09:54 POC Glucose 188 H 83 87 12/28/17 12/28/17 12/28/17 07:32 06:34 05:32 POC Glucose 76 70 74 12/28/17 12/28/17 12/28/17 04:16 03:08 02:04 POC Glucose 73 92 85 12/28/17 12/27/17 12/27/17 01:00 23:32 22:40 POC Glucose 91 113 H 108 12/27/17 12/27/17 21:31 20:31 POC Glucose 105 96 Phys Exam - Physical Examination Constitutional: NAD HEENT: PERRLA, moist MMs, sclera anicteric, TM's clear Neck: no nodes, no JVD, supple, full ROM Respiratory: no wheezing, no rhonchi Cardiovascular: RRR, no significant murmur, no rub Dx/Plan (1) Acute hypoxemic respiratory failure Code(s): J96.01 - ACUTE RESPIRATORY FAILURE WITH HYPOXIA Status: Acute (2) HCAP (healthcare-associated pneumonia) Code(s): J18.9 - PNEUMONIA, UNSPECIFIED ORGANISM Status: Acute Comment: bilateral HCAP. Present on admit. Cefepime, leovflox. Pulm consulted. resp status is stable (3) Septic shock Code(s): A41.9 - SEPSIS, UNSPECIFIED ORGANISM; R65.21 - SEVERE SEPSIS WITH SEPTIC SHOCK Status: Acute Comment: transferred ot CCU, give another 1L fluids, if not better, will need levophed to be started and probably a CVC (4) Chronic diastolic CHF (congestive heart failure) Code(s): I50.32 - CHRONIC DIASTOLIC (CONGESTIVE) HEART FAILURE Status: Chronic (5) DM2 (diabetes mellitus, type 2) Status: Chronic Qualifiers: Diabetes mellitus complication status: without complication Diabetes mellitus watermelon inspector insulin use: with long-term use Qualified Code(s): E11.9 - Type 2 diabetes mellitus without complications; Z79.4 - petroleum terminal plant operator (current) use of insulin; Z79.4 - halfway (current) use of insulin; Z79.4 - petroleum terminal plant operator ( current) use of insulin; Z79.4 - halfway (current) use of insulin (6) SULEMA (acute kidney injury) Code(s): N17.9 - ACUTE KIDNEY FAILURE, UNSPECIFIED Status: Acute Comment: Improved, continue IVF's, avoid nephrotoxic meds and contrast media (7) Hypotension Status: Acute Comment: Resolved, continue IVF's and monitor BP trend (8) Sepsis Code(s): A41.9 - SEPSIS, UNSPECIFIED ORGANISM Status: Acute Comment: Improved with IV abx and fluid resuscitation, initial blood/urine cx negative, continue supportive measures (9) Hyperkalemia Code(s): E87.5 - HYPERKALEMIA Status: Acute (10) Metabolic acidosis Code(s): E87.2 - ACIDOSIS Status: Acute - Plan cont current plan of care, plan discussed w/ family, continue antibiotics, PT/OT , social service director, respiratory therapy change diet to Regular -: Diuresis * .
[2017-12-28] MEDS: HumaLOG 300 UNITS/3 ML VIAL SC PRN (20:45)
[2017-12-28] MEDS: Famotidine 20 MG TAB PO SCH (20:46)
[2017-12-28] MEDS: Melatonin 3 MG TAB PO PRN (22:06)
[2017-12-28] MEDS: Cefepime 1 GM in Syringe 10 ML SLOW IVP SCH (22:26)
[2017-12-29 06:07] LABS: Anion Gap 15 mmol/L (10-20); BUN (Urea Nitrogen) 31 mg/dL (9.8-20.1); Calc. Creatinine Clearance 85 mL/min (70-130); Calcium 10.5 mg/dL (7.8-10.44); Carbon Dioxide 21 mmol/L (22-29); Chloride 105 mmol/L (98-107); Estimated GFR-MDRD 59; Glucose 149 mg/dL (70-105); Potassium 3.4 mmol/L (3.5-5.1); Sodium 138 mmol/L (136-145)
[2017-12-29 06:13] LABS: Hemoglobin 8.7 g/dL (12.0-16.0); Mean Corpuscular HGB CONC 31.3 g/dL (32.0-36.0); Mean Corpuscular Hemoglobin 26.5 pg (27.0-31.0); Mean Corpuscular Volume 84.8 fl (81.0-99.0); Mean Platelet Volume 8.2 fL (7.4-10.4); Platelet Count 444 thou/uL (130-400); RBC Distribution Width 15.3 % (11.5-14.5); Red Blood Cell (RBC) Count 3.27 mill/uL (4.20-5.40); White Blood Cell (WBC) Count 9.7 thou/uL (4.8-10.8)
[2017-12-29 06:14] LABS: Band 1 % (5-11); Eosinophils 3 % (0-10); Lymphocytes 6 % (21-51); MDiff Complete? YES; Monocytes 18 % (0-10); Neutrophil 72 % (42-75)
[2017-12-29] MEDS: Furosemide 40 MG/4 ML VIAL SLOW IVP SCH (06:40)
--- NOTE | 2017-12-29 08:34 | PDOC.PN ---
- Subjective Encounter Start Date: 12/29/17 Encounter Start Time: 08:33 Subjective: Seen and examined doing so much better - Objective Resuscitation Status: Resuscitation Status FULL:Full Resuscitation Vital Signs & Weight: Vital Signs (12 hours) Temp Pulse 12/29/17 02:41 113 H 12/29/17 00:00 98.0 F 12/28/17 21:27 120 H Weight Admit Weight 205 lb 4.8 oz Weight 201 lb 8.04 oz Most Recent Monitor Data Heart Rate from ECG 110 NIBP 143/86 NIBP BP-Mean 97 Respiration from ECG 14 SpO2 96 I&O: 12/28/17 12/29/17 12/30/17 06:59 06:59 06:59 Intake Total 3183 965 0 Output Total 4700 4975 300 Balance -1517 -4010 -300 Result Diagrams: 12/29/17 05:12 12/29/17 05:12 Additional Labs: Accuchecks 12/29/17 12/29/17 12/29/17 07:48 05:12 00:59 POC Glucose 133 H 150 H 251 H 12/28/17 12/28/17 12/28/17 20:29 17:12 13:13 POC Glucose 260 H 188 H 83 12/28/17 09:54 POC Glucose 87 Phys Exam - Physical Examination Constitutional: NAD HEENT: PERRLA, moist MMs, sclera anicteric, TM's clear, oral pharynx no lesions Neck: no nodes, no JVD, supple, full ROM Respiratory: no wheezing, no rales, no rhonchi, clear to auscultation bilateral Cardiovascular: RRR, no significant murmur, no rub Gastrointestinal: soft, non-tender, no distention, positive bowel sounds Musculoskeletal: no edema, pulses present Dx/Plan (1) Acute hypoxemic respiratory failure Code(s): J96.01 - ACUTE RESPIRATORY FAILURE WITH HYPOXIA Status: Acute (2) HCAP (healthcare-associated pneumonia) Code(s): J18.9 - PNEUMONIA, UNSPECIFIED ORGANISM Status: Acute Comment: bilateral HCAP. Present on admit. Cefepime, leovflox. Pulm consulted. resp status is stable (3) Septic shock Code(s): A41.9 - SEPSIS, UNSPECIFIED ORGANISM; R65.21 - SEVERE SEPSIS WITH SEPTIC SHOCK Status: Acute Comment: transferred ot CCU, give another 1L fluids, if not better, will need levophed to be started and probably a CVC (4) Chronic diastolic CHF (congestive heart failure) Code(s): I50.32 - CHRONIC DIASTOLIC (CONGESTIVE) HEART FAILURE Status: Chronic (5) DM2 (diabetes mellitus, type 2) Status: Chronic Qualifiers: Diabetes mellitus complication status: without complication Diabetes mellitus vermin exterminator insulin use: with vermin exterminator use Qualified Code(s): E11.9 - Type 2 diabetes mellitus without complications; Z79.4 - skilled nursing (current) use of insulin; Z79.4 - terminal make up operator (current) use of insulin; Z79.4 - skilled nursing ( current) use of insulin; Z79.4 - skilled nursing (current) use of insulin (6) SULEMA (acute kidney injury) Code(s): N17.9 - ACUTE KIDNEY FAILURE, UNSPECIFIED Status: Acute Comment: Improved, continue IVF's, avoid nephrotoxic meds and contrast media (7) Hypotension Status: Acute Comment: Resolved, continue IVF's and monitor BP trend (8) Sepsis Code(s): A41.9 - SEPSIS, UNSPECIFIED ORGANISM Status: Acute Comment: Improved with IV abx and fluid resuscitation, initial blood/urine cx negative, continue supportive measures (9) Hyperkalemia Code(s): E87.5 - HYPERKALEMIA Status: Acute (10) Metabolic acidosis Code(s): E87.2 - ACIDOSIS Status: Acute (11) Hypokalemia Code(s): E87.6 - HYPOKALEMIA Status: Acute - Plan plan discussed w/ family, continue antibiotics, PT/OT, child welfare social worker, respiratory therapy Diuresis -: Wean off 10% dextrose -: Replete potassium * .
[2017-12-29] MEDS: Clopidogrel Bisulfate 75 MG TAB PO SCH (09:12)
[2017-12-29] MEDS: Potassium Chloride 20 MEQ TAB PO SCH ×2 (09:12→16:59)
[2017-12-29] MEDS: HYDROcodone/Acetaminophen 5/325 mg Tablet PO PRN (09:12)
[2017-12-29] MEDS: Micafungin 100 MG in Sodium Chloride 0.9% 100 ML IVPB SCH (09:13)
[2017-12-29] MEDS: Atorvastatin Calcium 40 MG TAB PO SCH (09:14)
[2017-12-29] MEDS: HumaLOG 300 UNITS/3 ML VIAL SC PRN ×2 (11:51→17:03)
--- NOTE | 2017-12-29 12:39 | PRG ---
DATE OF SERVICE: 12/29/2017 SUBJECTIVE: Ms. Yo looks great. She is sitting on the side of the bed. She is in no distress. She has facial asymmetry. OBJECTIVE: VITAL SIGNS: Blood pressure 130/73, heart rate 114, respiratory rate 23. LUNGS: Clear with the exception of end-expiratory wheezes. HEART: Regular rhythm. ABDOMEN: Soft. LABORATORY DATA: White count 9.7, hemoglobin 8.7, platelets 444. Hemoglobin yesterday was 8.2. Sod ium 138, potassium 3.4, chloride 105, bicarbonate 21, BUN 31, creatinine 1.17. IMPRESSION: 1. Acute on chronic respiratory failure. 2. Asthma with some mild wheezes today, she may do well simply with Brovana and budesonide twice a d ay. 3. History of breast cancer. I suppose there is a chance of some of her wheezing could be endobronc hial disease associated with breast cancer. 4. Chronic kidney disease with acute renal dysfunction, improved. 5. Pneumonia, on antimicrobial therapy. 6. Tobacco use. 7. Diabetes. PLAN: 1. Check radiograph in the morning. 2. Add Brovana and budesonide. 3. Continue serial exams. In my opinion, it would not be unreasonable to move her out of the Critic [facility] Care Unit to a medical bed.
[2017-12-29] MEDS: Budesonide 0.5 MG/2 ML NEB INH SCH (18:56)
[2017-12-29] MEDS: Arformoterol 15 MCG/2 ML NEB NEB SCH (18:57)
[2017-12-29] MEDS: Famotidine 20 MG TAB PO SCH (20:59)
[2017-12-29] MEDS: Melatonin 3 MG TAB PO PRN (20:59)
[2017-12-29] MEDS ORDERED: diphenhydrAMINE 50 MG CAP PO SCH (21:00)
[2017-12-29] MEDS: Cefepime 1 GM in Syringe 10 ML SLOW IVP SCH (21:06)
[2017-12-30] MEDS: Furosemide 40 MG/4 ML VIAL SLOW IVP SCH (04:27)
[2017-12-30] MEDS: HumaLOG 300 UNITS/3 ML VIAL SC PRN ×2 (04:30→12:33)
[2017-12-30] MEDS: Budesonide 0.5 MG/2 ML NEB INH SCH (06:14)
[2017-12-30] MEDS: Arformoterol 15 MCG/2 ML NEB NEB SCH (06:16)
[2017-12-30 06:33] LABS: Anion Gap 17 mmol/L (10-20); BUN (Urea Nitrogen) 30 mg/dL (9.8-20.1); Calc. Creatinine Clearance 79 mL/min (70-130); Calcium 11.4 mg/dL (7.8-10.44); Carbon Dioxide 22 mmol/L (22-29); Chloride 106 mmol/L (98-107); Estimated GFR-MDRD 56; Glucose 231 mg/dL (70-105); Sodium 141 mmol/L (136-145)
[2017-12-30] MEDS: Atorvastatin Calcium 40 MG TAB PO SCH (09:22)
[2017-12-30] MEDS: Clopidogrel Bisulfate 75 MG TAB PO SCH (09:22)
[2017-12-30] MEDS: Micafungin 100 MG in Sodium Chloride 0.9% 100 ML IVPB SCH (09:23)
--- NOTE | 2017-12-30 09:49 | PRG ---
DATE OF SERVICE: 12/30/2017 She is up in a chair, says she feels fine, has no acute complaints. PHYSICAL EXAMINATION: VITAL SIGNS: Temperature 98.4, pulse 114, respirations 12, O2 sat 91% on room air, blood pressure 14 4/82. HEENT: Unremarkable. NECK: No JVD. CHEST: Occasional rhonchi. CARDIAC: S1 and S2 regular. ABDOMEN: Soft. EXTREMITIES: No edema. ASSESSMENT: 1. Status post acute respiratory failure. 2. Asthma. 3. History of breast cancer. 4. Chronic kidney disease. 5. Pneumonia. PLAN: I reviewed orders, can probably convert over to oral antibiotics. Discontinue Perez.
--- NOTE | 2017-12-30 12:04 | DIS ---
DATE OF ADMISSION: 12/24/2017 DATE OF DISCHARGE: 12/30/2017 DISPOSITION: Discharged home. PRIMARY CARE PROVIDER: Dr. Cammie Ernst in [place], [place]. DISCHARGE DIAGNOSES: Healthcare-associated pneumonia; lactic acidosis; sepsis syndrome; acute kidney failure; diabetes mellitus, type 2; history of breast cancer; ongoing tobacco abuse; dyslipidemia; h ypertension. DISCHARGE MEDICATIONS: Omnicef 600 mg p.o. daily, allopurinol 100 mg a day, Lipitor 80 mg a day, Charles vix 75 mg a day, Aromasin 25 mg a day, Lantus 100 units subcu twice a day, Lyrica 50 mg twice a day, Ambien 10 mg at bedtime, bupropion 150 mg a day, metformin 1000 mg twice a day, tramadol 50 mg p.o. t .i.d. p.r.n. Discontinue lisinopril/hydrochlorothiazide and glimepiride. Continue all other medicines. ALLERGIES: To MORPHINE, NITROGLYCERIN, and PENICILLINS. HOSPITAL COURSE: Patient, post-hospitalization in November for pneumonia, presented with shortness of breath and had elevated white count. Chest x-ray showed patchy bilateral infiltrates. Her kidneys showed a marked increase of creatinine at 2.67 with a potassium of 6.2. She has multiple medical pro blems including diabetes, breast cancer, hypertension, and ongoing smoking abuse. She was started on broad-spectrum antibiotics. Her cultures were negative. They were done in [facility] and none were repeated at this facility. During her hospital stay, she has improved dramatically. Consultat ions were obtained with Dr. Ezra Petit, Nephrology, and Dr. Adi Delgado, Pulmonology. PROCEDURES: None. I examined her this morning. Chest is clear. She states she feels well and is desirous of going rishabh e. Her home medicines have been reinstituted. Her white count came down from 14.7 to 9.7, creatinin e came down from 2.67 to 1.22. Blood sugars are mildly elevated at this time, 244, is maximum. She has been advised to see her primary care provider in 1 week. PENDING AT THE TIME OF DISCHARGE: Nothing. CODE STATUS: FULL.
[2017-12-30 12:11] VITALS: BP 159/88; TEMP 98.1
[2017-12-30 12:50] LABS: Iron 23 ug/dL (50-170); Iron Binding Capacity, Total 203 mcg/dL (265-497)
[2017-12-31] MEDS ORDERED: Cefdinir 300 MG CAP PO SCH (09:00)
== END 2017-12-30 13:20 | disposition home or self-care (01) | DRG 871 ==
LOC: ERS 17:15 → 2NO 20:09 → CCU 12-25 11:37 → T4-B 12-29 17:19
PROVIDERS: ADMIT Internal Medicine Infectious Disease; ATTEND Internal Medicine Infectious Disease
PROC: 5A09457 Assistance with Respiratory Ventilation, 24-96 Consecutive Hours, Continuous Positive Airway Pressure (ICD-10-PCS; principal; 2017-12-24)
DX: A41.9 Sepsis, unspecified organism (principal); J18.9 Pneumonia, unspecified organism; J96.21 Acute and chronic respiratory failure with hypoxia; R65.21 Severe sepsis with septic shock; N17.9 Acute kidney failure, unspecified; I13.0 Hypertensive heart and chronic kidney disease with heart failure and stage 1 through stage 4 chronic kidney disease, or unspecified chronic kidney disease; I50.32 Chronic diastolic (congestive) heart failure; E11.22 Type 2 diabetes mellitus with diabetic chronic kidney disease; E87.2 Acidosis; E78.5 Hyperlipidemia, unspecified; E87.5 Hyperkalemia; C50.911 Malignant neoplasm of unspecified site of right female breast; J44.9 Chronic obstructive pulmonary disease, unspecified; E11.649 Type 2 diabetes mellitus with hypoglycemia without coma; F17.210 Nicotine dependence, cigarettes, uncomplicated; Z99.81 Dependence on supplemental oxygen; E66.9 Obesity, unspecified; Z68.35 Body mass index [BMI] 35.0-35.9, adult; M1A.9XX0 Chronic gout, unspecified, without tophus (tophi); Z86.718 Personal history of other venous thrombosis and embolism; Z88.5 Allergy status to narcotic agent; Z88.0 Allergy status to penicillin; Z88.8 Allergy status to other drugs, medicaments and biological substances; Z79.02 Long term (current) use of antithrombotics/antiplatelets; Z79.4 Long term (current) use of insulin; Z79.899 Other long term (current) drug therapy; Z90.11 Acquired absence of right breast and nipple
CPT/HCPCS: 36415; 36416; 71045; 80048; 80069; 81001; 82570; 82728; 82805; 83036; 83540; 83550; 83735; 84100; 84300; 85025; 93005; 94640; 94660; 96365; 96366; A4216; J0692; J1815; J1940; J1956; J2248; J3475; J7050; J7620; J7626; P9047; Q0162